=== PATIENT | female | born 1950 | race African-American/Black ===

== ENCOUNTER 2020-07-24 10:35 | Outpatient (REF) | payer MEDICARE, SELFPAY ==
[2020-07-24 11:30] LABS: MANUAL DIFF FLAG NO
[2020-07-24 11:49] LABS: Basophils Percent Auto 0.4 % (0-2); Eosinophils Absolute Auto 0.1 X10*3/uL (0.0-0.4); Eosinophils Percent Auto 0.9 % (0-4); Hematocrit 40.3 % (37-47); Hemoglobin 13.5 g/dl (12.0-16.0); Imm Gran Abs Auto 0.01 X10*3/uL (0.00-0.03); Imm Gran Pct Auto 0.2 % (0.0-0.4); Lymphocytes Percent Auto 35.5 % (20-40); Mean Corpuscular HGB Conc 33.5 g/dl (31.0-35.0); Mean Corpuscular Hemoglobin 30.3 pg (27.0-33.0); Mean Corpuscular Volume 90.6 fL (80-98); Mean Platelet Volume 10.3 fL (9.4-12.3); Monocytes Absolute Auto 0.5 X10*3/uL (0.1-1.2); Monocytes Percent Auto 9.8 % (2-11); Neutrophils Absolute Auto 2.9 X10*3/uL (2.0-8.3); Neutrophils Percent Auto 53.2 % (45-73); Platelet Count 242 X10*3/uL (160-400); Red Blood Count 4.45 X10*6/uL (4.20-5.50); Red Cell Distribution Width 12.8 % (11.0-16.0); White Blood Count 5.5 X10*3/uL (4.8-10.8)
[2020-07-24 12:26] LABS: Thyroid Stimulating Hormone 1.16 uIU/mL (0.32-4.0)
[2020-07-24 12:34] LABS: Alanine Aminotransferase 16 U/L (0-31); Albumin Level 4.5 g/dL (3.5-5.0); Alkaline Phosphatase 60 U/L (39-117); Anion Gap 13 (12-20); Aspartate Amino Transferase 15 U/L (5-31); Bilirubin Total 0.8 mg/dL (0.0-1.0); Blood Urea Nitrogen 16 mg/dL (9-16); Calcium 9.7 mg/dL (8.4-10.2); Carbon Dioxide 28 mmol/L (22-29); Chloride 103 mmol/L (96-108); Cholesterol 271 mg/dL; Estimated Glomerular Filt Rate > 60; Glucose Fasting 89 mg/dL (60-99); HDL Cholesterol 67 mg/dL; LDL Cholesterol Calculated 181 mg/dl; Potassium 4.2 mmol/l (3.3-5.1); Sodium 140 mmol/L (135-145); Total Protein 7.4 g/dL (6.5-8.0); Triglycerides 118 mg/dL
[2020-07-24 12:37] LABS: Estimated Average Glucose 105 mg/dL; Hemoglobin A1c % 5.3 %
== END 2020-07-24 10:36 | disposition home or self-care (01) ==
LOC: HO.LAB 10:35
PROVIDERS: PCP Internal Medicine; Visit Provider Physician Assistant
DX: I10 Essential (primary) hypertension (principal); E78.5 Hyperlipidemia, unspecified; R73.09 Other abnormal glucose
CPT/HCPCS: 36415; 80053; 80061; 83036; 84443; 85025

== ENCOUNTER 2020-12-28 08:19 | Outpatient (REF) | payer MEDICARE, SELFPAY ==
--- NOTE | ~2020-12-28 | MM_ITS ---
EXAMINATION: MM SCREENING DIGITAL BREAST TOMOSYNTHESIS, BILATERAL CLINICAL INFORMATION: Screening. Asymptomatic. The lifetime risk of breast cancer based on the Tyrer-Cuzick Model is 4%. COMPARISON: Mammography: 12/25/2019, 10/18/2018, 10/17/2017 TECHNIQUE: Digital breast tomosynthesis is performed in both the craniocaudal and mediolateral oblique views along with computer-aided detection (CAD). Synthesized 2D images are generated from the tomosynthesis. FINDINGS: There are scattered areas of fibroglandular density (ACR BI-RADS breast composition Category b). There are no significant masses, abnormal calcifications, or other abnormalities. Parenchymal pattern is similar to prior exams. There is a stable smooth nodule anterior 12:00 right breast. Biopsy clip marker again noted mid upper outer right breast. The axilla and skin contours are unremarkable. MM/MM tomosynthesis screening BI IMPRESSION: No mammographic evidence of malignancy. ASSESSMENT: BI-RADS 2: Benign RECOMMENDATION: Routine annual mammography screening. This patient's information was entered into a reminder system with a target due date for their next mammogram.
== END 2020-12-28 08:20 | disposition home or self-care (01) ==
LOC: HO.MAMMO 08:19
PROVIDERS: PCP Internal Medicine; Visit Provider Internal Medicine
DX: Z12.31 Encounter for screening mammogram for malignant neoplasm of breast (principal)
CPT/HCPCS: 77063; 77067

== ENCOUNTER 2021-01-25 09:52 | Outpatient (REF) | payer MEDICARE, SELFPAY ==
[2021-01-25 11:13] LABS: Hematocrit 38.7 % (37-47); Hemoglobin 12.7 g/dl (12.0-16.0); Mean Corpuscular HGB Conc 32.8 g/dl (31.0-35.0); Mean Corpuscular Hemoglobin 29.7 pg (27.0-33.0); Mean Corpuscular Volume 90.4 fL (80-98); Mean Platelet Volume 10.5 fL (9.4-12.3); Platelet Count 260 X10*3/uL (160-400); Red Blood Count 4.28 X10*6/uL (4.20-5.50); Red Cell Distribution Width 13.3 % (11.0-16.0); White Blood Count 5.5 X10*3/uL (4.8-10.8)
[2021-01-25 11:17] LABS: Alanine Aminotransferase 17 U/L (0-31); Albumin Level 4.3 g/dL (3.5-5.0); Alkaline Phosphatase 67 U/L (39-117); Anion Gap 11 (12-20); Aspartate Amino Transferase 17 U/L (5-31); Bilirubin Total 0.8 mg/dL (0.0-1.0); Blood Urea Nitrogen 19 mg/dL (9-16); Calcium 9.9 mg/dL (8.4-10.2); Carbon Dioxide 30 mmol/L (22-29); Chloride 103 mmol/L (96-108); Cholesterol 269 mg/dL; Estimated Glomerular Filt Rate 52; Glucose Fasting 101 mg/dL (60-99); HDL Cholesterol 61 mg/dL; LDL Cholesterol Calculated 193 mg/dl; Potassium 4.2 mmol/L (3.3-5.1); Sodium 140 mmol/L (135-145); Total Protein 7.4 g/dL (6.5-8.0); Triglycerides 76 mg/dL
[2021-01-25 11:40] LABS: Estimated Average Glucose 108 mg/dL; Hemoglobin A1c % 5.4 %
[2021-01-25 12:10] LABS: Creatinine Urine 139.24 mg/dL
== END 2021-01-25 09:53 | disposition home or self-care (01) ==
LOC: HO.LAB 09:52
PROVIDERS: PCP Internal Medicine; Visit Provider Physician Assistant
DX: R73.09 Other abnormal glucose (principal); I10 Essential (primary) hypertension; E78.2 Mixed hyperlipidemia
CPT/HCPCS: 36415; 80053; 80061; 82043; 83036; 84443; 85027

== ENCOUNTER → 2021-03-29 08:29 | Outpatient (BNVA) | payer MEDICARE, SELFPAY | PROVIDERS: PCP Internal Medicine; Referring Provider Internal Medicine; Visit Provider Surgery | DX: L72.0 Epidermal cyst (principal) | CPT/HCPCS: 99202 ==

== ENCOUNTER 2021-04-05 | Outpatient (REF) | payer MEDICARE, SELFPAY ==
[2021-04-05 07:41] VITALS: BP 166/76; PULSE 63; RESP 16; TEMP 36.2; O2SAT 98
[2021-04-05 07:43] VITALS: BMI 26.7
[2021-04-05 08:10] VITALS: BP 159/82; PULSE 61; RESP 16; O2SAT 98
--- NOTE | 2021-04-05 08:24 | P.OP_ITS ---
Operative Note Operative Note Date of Service: 04/05/21 Narrative: Preop Diagnosis: Epidermal cyst, left wrist Postop diagnosis: As above Procedure: Excision of epidermal cyst from the left wrist Surgeon: Rudy Simental MD Patient is a 70-year-old female with note of a cystic induration on the wrist at the volar aspect, measuring about 1 cm in diameter. She understood the technique of excision under local anesthesia. She was aware of the risks, benefits, and alternatives She was about to the minor procedure room and placed supine on the table. The left wrist at the anterior aspect was prepped and draped in the usual sterile fashion. A surgical time-out was done. I infiltrated the area around the cystic induration. This was done using lidocaine 1%. I then made an elliptical incision around this cystic induration using blade 15. This was carried down through the full-thickness of the skin and subcutaneous fat to excise this entire indurated area. I then closed this incision with full-thickness nylon 3- 0 interrupted sutures. Dressings were applied. The procedure was completed The patient tolerated procedure well. There were no complications noted. She was given wound care instructions. Blood loss about 1 cc.
== END 2021-04-05 00:01 | disposition home or self-care (01) ==
LOC: HO.MS
PROVIDERS: PCP Internal Medicine; Visit Provider Surgery
PROC: (CPT 11421; principal; 2021-04-05 08:00)
DX: L72.0 Epidermal cyst (principal); L90.5 Scar conditions and fibrosis of skin
CPT/HCPCS: 11421; 88305

== ENCOUNTER → 2021-04-21 09:37 | Outpatient (BNVA) | payer MEDICARE, SELFPAY | PROVIDERS: PCP Internal Medicine; Visit Provider Surgery | DX: L72.0 Epidermal cyst (principal) | CPT/HCPCS: 99212 ==

== ENCOUNTER 2021-05-14 10:12 | Outpatient (REF) | payer MEDICARE, SELFPAY ==
[2021-05-14 10:50] LABS: Hematocrit 39.2 % (37.0-47.0); Mean Corpuscular HGB Conc 33.2 g/dl (31.0-35.0); Mean Corpuscular Hemoglobin 29.7 pg (27.0-33.0); Mean Corpuscular Volume 89.5 fL (80.0-98.0); Mean Platelet Volume 10.2 fL (9.4-12.3); Platelet Count 238 X10*3/uL (160-400); Red Blood Count 4.38 X10*6/uL (4.20-5.50); Red Cell Distribution Width 13.1 % (11.0-16.0); White Blood Count 6.6 X10*3/uL (4.8-10.8)
[2021-05-14 11:13] LABS: Alanine Aminotransferase 18 U/L (0-31); Albumin Level 4.4 g/dL (3.5-5.0); Alkaline Phosphatase 63 U/L (39-117); Anion Gap 10 (12-20); Aspartate Amino Transferase 16 U/L (5-31); Bilirubin Direct 0.3 mg/dL (0.0-0.5); Bilirubin Total 0.9 mg/dL (0.0-1.0); Blood Urea Nitrogen 18 mg/dL (9-16); Calcium 9.4 mg/dL (8.4-10.2); Carbon Dioxide 30 mmol/L (22-29); Chloride 105 mmol/L (96-108); Cholesterol 178 mg/dL; Estimated Glomerular Filt Rate > 60; Glucose Random 103 mg/dL (60-115); HDL Cholesterol 57 mg/dL; LDL Cholesterol Calculated 109 mg/dl; Sodium 141 mmol/L (135-145); Total Protein 7.2 g/dL (6.5-8.0); Triglycerides 63 mg/dL
[2021-05-14 11:34] LABS: Thyroid Stimulating Hormone 0.91 uIU/mL (0.32-4.0)
== END 2021-05-14 10:13 | disposition home or self-care (01) ==
LOC: HO.LAB 10:12
PROVIDERS: PCP Internal Medicine; Visit Provider Internal Medicine
DX: I10 Essential (primary) hypertension (principal); E78.2 Mixed hyperlipidemia
CPT/HCPCS: 36415; 80048; 80061; 80076; 84443; 85027

== ENCOUNTER 2021-12-22 11:07 | Outpatient (REF) | payer MEDICARE, SELFPAY ==
[2021-12-22 12:18] LABS: Hematocrit 40.3 % (37.0-47.0); Hemoglobin 13.3 g/dl (12.0-16.0); Mean Corpuscular Hemoglobin 29.6 pg (27.0-33.0); Mean Corpuscular Volume 89.8 fL (80.0-98.0); Mean Platelet Volume 10.3 fL (9.4-12.3); Platelet Count 223 X10*3/uL (160-400); Red Blood Count 4.49 X10*6/uL (4.20-5.50); Red Cell Distribution Width 12.8 % (11.0-16.0); White Blood Count 5.8 X10*3/uL (4.8-10.8)
[2021-12-22 12:30] LABS: Appearance Urine CLEAR; Color Urine YELLOW; Glucose Urine UA NEG (NEG); Leukocyte Esterase Urine NEG (NEG); Nitrite Urine NEG (NEG); Specific Gravity - Urine <= 1.005 (1.005-1.025); Urine Blood 1+ (NEG); Urine Ketones NEG (NEG); Urine Protein NEG (NEG-TRACE)
[2021-12-22 12:31] LABS: Estimated Average Glucose 120 mg/dL; Hemoglobin A1c % 5.8 %
[2021-12-22 12:40] LABS: Alanine Aminotransferase 19 U/L (0-31); Albumin Level 4.3 g/dL (3.5-5.0); Alkaline Phosphatase 60 U/L (39-117); Anion Gap 10 (12-20); Aspartate Amino Transferase 16 U/L (5-31); Bilirubin Direct 0.3 mg/dL (0.0-0.5); Bilirubin Total 0.7 mg/dL (0.0-1.0); Blood Urea Nitrogen 20 mg/dL (9-16); Calcium 9.4 mg/dL (8.4-10.2); Carbon Dioxide 28 mmol/L (22-29); Chloride 105 mmol/L (96-108); Cholesterol 182 mg/dL; Estimated Glomerular Filt Rate 58; Glucose Random 95 mg/dL (60-115); HDL Cholesterol 58 mg/dL; LDL Cholesterol Calculated 111 mg/dl; Sodium 139 mmol/L (135-145); Total Protein 7.2 g/dL (6.5-8.0); Triglycerides 65 mg/dL
[2021-12-22 12:43] LABS: Bacteria Urine TRACE /LPF; RBC Urine 0-2 /HPF (0); Squamous Epithelial Cell Urine 1+ /LPF; WBC Urine 0 /HPF (0-4)
[2021-12-22 12:54] LABS: Creatinine Urine 32.56 mg/dL; Microalbumin Urine < 5.0 mg/L
== END 2021-12-22 11:08 | disposition home or self-care (01) ==
LOC: HO.LAB 11:07
PROVIDERS: PCP Internal Medicine; Visit Provider Internal Medicine
DX: I10 Essential (primary) hypertension (principal); R73.09 Other abnormal glucose
CPT/HCPCS: 36415; 80048; 80061; 80076; 81001; 82043; 83036; 85027

== ENCOUNTER 2021-12-30 09:24 | Outpatient (REF) | payer MEDICARE, SELFPAY ==
--- NOTE | ~2021-12-30 | MM_ITS ---
EXAMINATION: MM SCREENING DIGITAL BREAST TOMOSYNTHESIS, BILATERAL CLINICAL INFORMATION: Screening. Asymptomatic. The lifetime risk of breast cancer based on the Tyrer-Cuzick Model is 2.9%. COMPARISON: Mammography: December 28, 2020 and studies dating back to September 12, 2013 TECHNIQUE: Digital breast tomosynthesis is performed in both the craniocaudal and mediolateral oblique views along with computer-aided detection (CAD). Synthesized 2D images are generated from the tomosynthesis. FINDINGS: There are scattered areas of fibroglandular density (ACR BI-RADS breast composition Category b). There are no significant masses, abnormal calcifications, or other abnormalities. MM/MM tomosynthesis screening BI IMPRESSION: There are no significant changes from prior study. ASSESSMENT: BI-RADS 1: Negative RECOMMENDATION: Routine annual mammography screening. This patient's information was entered into a reminder system with a target due date for their next mammogram.
== END 2021-12-30 09:25 | disposition home or self-care (01) ==
LOC: HO.MAMMO 09:24
PROVIDERS: PCP Internal Medicine; Visit Provider Internal Medicine
DX: Z12.31 Encounter for screening mammogram for malignant neoplasm of breast (principal)
CPT/HCPCS: 77063; 77067

== ENCOUNTER 2022-07-19 09:10 | Outpatient (REF) | payer MEDICARE, SELFPAY ==
[2022-07-19 09:51] LABS: Hematocrit 37.6 % (37.0-47.0); Hemoglobin 12.6 g/dl (12.0-16.0); Mean Corpuscular HGB Conc 33.5 g/dl (31.0-35.0); Mean Corpuscular Hemoglobin 30.1 pg (27.0-33.0); Mean Platelet Volume 10.4 fL (9.4-12.3); Platelet Count 229 X10*3/uL (160-400); Red Blood Count 4.18 X10*6/uL (4.20-5.50); Red Cell Distribution Width 13.2 % (11.0-16.0); White Blood Count 6.4 X10*3/uL (4.8-10.8)
[2022-07-19 10:40] LABS: Appearance Urine Clear; Color Urine Yellow; Glucose Urine UA Negative (Negative); Leukocyte Esterase Urine Negative (Negative); Nitrite Urine Negative (Negative); UMIC TRIGGER UA YES; Urine Blood Small (1+) (Negative); Urine Ketones Negative (Negative); Urine Protein Negative (Neg-Trace)
[2022-07-19 10:58] LABS: WBC Urine 0-5 /HPF (0-5)
[2022-07-19 11:00] LABS: Hyaline Casts Urine 0-2 /LPF (0-2)
[2022-07-19 11:14] LABS: Bacteria Urine 1+ (None Seen)
[2022-07-19 11:38] LABS: Alanine Aminotransferase 17 U/L (0-31); Albumin Level 4.2 g/dL (3.5-5.0); Alkaline Phosphatase 55 U/L (39-117); Anion Gap 11 (12-20); Aspartate Amino Transferase 16 U/L (5-31); Bilirubin Direct 0.2 mg/dL (0.0-0.5); Bilirubin Total 0.6 mg/dL (0.0-1.0); Blood Urea Nitrogen 18 mg/dL (9-16); Calcium 9.4 mg/dL (8.4-10.2); Carbon Dioxide 27 mmol/L (22-29); Chloride 106 mmol/L (96-108); Cholesterol 172 mg/dL; Estimated Glomerular Filt Rate > 60; Glucose Random 107 mg/dL (60-115); HDL Cholesterol 55 mg/dL; LDL Cholesterol Calculated 102 mg/dl; Sodium 140 mmol/L (135-145); Thyroid Stimulating Hormone 0.89 uIU/mL (0.32-4.0); Triglycerides 78 mg/dL
== END 2022-07-19 09:11 | disposition home or self-care (01) ==
LOC: HO.LAB 09:10
PROVIDERS: PCP Internal Medicine; Visit Provider Internal Medicine
DX: I10 Essential (primary) hypertension (principal)
CPT/HCPCS: 36415; 80048; 80061; 80076; 81001; 84443; 85027

== ENCOUNTER 2023-01-03 08:35 | Outpatient (REF) | payer MEDICARE, SELFPAY ==
--- NOTE | ~2023-01-03 | MM_ITS ---
EXAMINATION: MM SCREENING DIGITAL BREAST TOMOSYNTHESIS, BILATERAL CLINICAL INFORMATION: Screening. Asymptomatic. The lifetime risk of breast cancer based on the Tyrer-Cuzick Model is 3%. COMPARISON: Mammography: 12/30/2021, 12/28/2020, 12/25/2019 TECHNIQUE: Digital breast tomosynthesis is performed in both the craniocaudal and mediolateral oblique views along with computer-aided detection (CAD). Synthesized 2D images are generated from the tomosynthesis. FINDINGS: There are scattered areas of fibroglandular density (ACR BI-RADS breast composition Category b). Breast tissue composition borders on predominantly fatty. Background stromal and fibroglandular densities are stable. There is a biopsy clip marker again seen mid upper outer right breast and a small stable nodular asymmetry central right breast. No developing density. There are no significant masses, abnormal calcifications, or other abnormalities. The axilla and skin contours are unremarkable. MM/MM tomosynthesis screening BI IMPRESSION: No mammographic evidence of malignancy. ASSESSMENT: BI-RADS 2: Benign RECOMMENDATION: Routine annual mammography screening. This patient's information was entered into a reminder system with a target due date for their next mammogram.
== END 2023-01-03 08:36 | disposition home or self-care (01) ==
LOC: HO.MAMMO 08:35
PROVIDERS: PCP Internal Medicine; Visit Provider Nurse Practitioner Adult Health
DX: Z12.31 Encounter for screening mammogram for malignant neoplasm of breast (principal)
CPT/HCPCS: 77063; 77067

== ENCOUNTER 2023-01-12 09:53 | Outpatient (REF) | payer MEDICARE, SELFPAY | END 2023-01-12 09:54 | disposition home or self-care (01) | LOC: HO.LAB 09:53 | PROVIDERS: PCP Internal Medicine; Visit Provider Internal Medicine | DX: I10 Essential (primary) hypertension (principal); R73.09 Other abnormal glucose | CPT/HCPCS: 81003 ==

== ENCOUNTER 2023-01-19 08:18 | Outpatient (AMB) | payer MEDICARE, SELFPAY ==
--- NOTE | 2023-01-19 08:25 | A.OFFPC_ITS ---
Vital Signs 01/19/23 08:26 Height 5 ft 3 in Weight 159 lb BMI 28.2 BP 132/80 Blood Pressure Location Lt brachial Position Sitting Pulse 70 Pulse Source Pulse Oximeter Pulse Oximetry (%) 100 Oxygen Delivery Method Room Air Intake Visit Reasons: 6mth f/u Intake Note: Patient here for a 6 month follow up Surgical Aide Required: No Accompanied by: Spouse Allergies No Known Allergies [No Known Allergies*] Allergy (Verified 01/19/23 08:39) Medication List - Last Reconciled 01/19/23 by Alexander Baldwin MD lisinopril-hydrochlorothiazide 10-12.5 mg 1 tab PO DAILY 90 days metformin 500 mg PO DAILY 90 days rosuvastatin 10 mg PO DAILY Tobacco use date assessed: 07/21/22 Fall risk assessment: No Falls in past year Last assessed Fall Risk: 01/19/23 Dental Screening Dental Screen Date: 01/19/23 Did you have a dental visit in the last 12 months?: Yes Did you have a dental problem in the last 6 months where you did not have access to dental care?: No Was dental information given to patient?: Patient has dentist HPI 6mth f/u HPI Details 72-year-old female presents to the office to discuss her chronic medical conditions. Patient is compliant with all medications and reporting no side effects. Able to function and do all activities of daily living. She exercises 1 to 2 times a week and follows a reasonably healthy diet. Sleeping well at night. Reporting no urinary incontinence. [facility], LAT[facility] Medical History Epidermal cyst Hyperlipidemia Hypertension Impaired glucose metabolism Normal colonoscopy Surgical History History of partial hysterectomy History of right breast biopsy Hx of cataract surgery Family History Father MVA (motor vehicle accident) Mother Cancer Sister Diabetes Hypertension Sister No problems noted. Social History Housing: House Alcohol intake: never Patient Tobacco Use Status: Never used Tobacco e-Cigarette/Vaping Use: Never Used Second Hand Smoke Exposure: No service: No Current occupational status: employed Current occupational exposures/hazards: No Cognitive needs: No Hearing needs: No Vision needs: Yes Questionnaire Thrive Questionnaire Date Thrive assessed: 07/21/22 MICHAEL-7 AMB Questionnaire MICHAEL-7 Date MICHAEL - 7 assessed: 07/21/22 Source: Developed by Drs. Akshat Aguilar, Venecia Solomon, Simeon Saleh and colleagues, with an educational veronica from [employer]. Physical exam (Primary Care) Vital Signs: Last Vital Signs Pulse 70 01/19/23 08:26 BP 132/80 01/19/23 08:26 Pulse Ox 100 01/19/23 08:26 Oxygen Delivery Method Room Air 01/19/23 08:26 Care Plan Goal for BP management: Blood pressure is in range. BMI result Body Mass Index 28.2 Tobacco/Smoking Status: Tobacco use Status Tobacco use date assessed 07/21/22 01/19/23 08:31 Patient Tobacco Use Status Never used Tobacco 01/19/23 08:31 e-Cigarette/Vaping Use Never Used 01/19/23 08:31 Thrive Assessment: Date of Thrive Assessment Date Thrive assessed 07/21/22 01/19/23 08:31 Advance Care Planning discussion: On file, no changes Const General: cooperative, healthy appearing and comfortable HENMT Head: Yes normal to inspection and Yes atraumatic Eyes General: appearance normal, both eyes and all related structures Neck Neck: Yes normal visual inspection and Yes full ROM Chest Chest palpation & inspection: normal inspection of the chest Resp Effort & Inspection: normal respiratory effort Auscultation: clear to auscultation bilaterally Cardio Jugular venous distension: no JVD Palpation: normal PMI Rate: regular rate Heart sounds: S1 normal heart sound present and S2 normal heart sound present GI Palpation (GI): Soft to palpation and No hepatosplenomegaly present Extrem General: Yes normal to inspection and Yes full ROM Assessment and Plan Assessment & Plan (1) Age-related osteoporosis without current pathological fracture: Code(s): M81.0 - Age-related osteoporosis without current pathological fracture (2) Impaired glucose metabolism: Code(s): R73.09 - Other abnormal glucose Plan: Blood work has been ordered. Will call with results. (3) Hypertension: Code(s): I10 - Essential (primary) hypertension Qualifiers: Hypertension type: essential hypertension Qualified Code(s): I10 - Essential (primary) hypertension Plan: Blood pressure is in range. Continue medications at same dosage. Counseling on the importance of diet and exercise done. (4) Hyperlipidemia: Code(s): E78.5 - Hyperlipidemia, unspecified Qualifiers: Hyperlipidemia type: mixed hyperlipidemia Qualified Code(s): E78.2 - Mixed hyperlipidemia Plan: Blood work has been ordered. Will call with the results. Orders: Orders XR DEXA appendicular skeleton Today M81.0 - Age-related osteoporosis without current pathological fracture Basic Metabolic Panel Today E78.5 - Hyperlipidemia, unspecified, I10 - Essential (primary) hypertension, R73.09 - Other abnormal glucose Hemoglobin A1c Today E78.5 - Hyperlipidemia, unspecified, I10 - Essential (prim sebastian) hypertension, R73.09 - Other abnormal glucose Lipid Panel Today E78.5 - Hyperlipidemia, unspecified, I10 - Essential (primary) hypertension, R73.09 - Other abnormal glucose Liver Panel Today E78.5 - Hyperlipidemia, unspecified, I10 - Essential (primary) hypertension, R73.09 - Other abnormal glucose Thyroid Stimulating Hormone Today E78.5 - Hyperlipidemia, unspecified, I10 - Essential (primary) hypertension, R73.09 - Other abnormal glucose Coding Level of Care Code Est Pt Level 4 (62577) Diagnoses Age-related osteoporosis without current pathological fracture M81.0 Impaired glucose metabolism R73.09 Hypertension I10 Hypertension type: essential hypertension Hyperlipidemia E78.2 Hyperlipidemia type: mixed hyperlipidemia Additional Codes Vital Signs *Quality* - Advance Care Planning discussion: On file, no changes ([id number])
[2023-01-19 08:26] VITALS: BP 132/80; PULSE 70; O2SAT 100; BMI 28.2
== END 2023-01-19 08:38 | disposition home or self-care (01) ==
PROVIDERS: PCP Internal Medicine; Visit Provider Internal Medicine
DX: M81.0 Age-related osteoporosis without current pathological fracture (principal); R73.09 Other abnormal glucose; I10 Essential (primary) hypertension; E78.2 Mixed hyperlipidemia; Z71.89 Other specified counseling
CPT/HCPCS: 1123F; 99214

== ENCOUNTER 2023-01-19 08:48 | Outpatient (REF) | payer MEDICARE, SELFPAY ==
[2023-01-19 09:55] LABS: Estimated Average Glucose 117 mg/dL; Hemoglobin A1c % 5.7 %
[2023-01-19 10:46] LABS: Alanine Aminotransferase 20 U/L (0-31); Albumin Level 4.3 g/dL (3.5-5.0); Alkaline Phosphatase 60 U/L (39-117); Anion Gap 11 (12-20); Aspartate Amino Transferase 15 U/L (5-31); Bilirubin Direct 0.2 mg/dL (0.0-0.5); Blood Urea Nitrogen 19 mg/dL (9-16); Calcium 9.5 mg/dL (8.4-10.2); Carbon Dioxide 29 mmol/L (22-29); Chloride 103 mmol/L (96-108); Cholesterol 184 mg/dL; Estimated Glomerular Filt Rate 59; Glucose Random 121 mg/dL (60-115); HDL Cholesterol 55 mg/dL; LDL Cholesterol Calculated 109 mg/dl; Potassium 3.8 mmol/L (3.3-5.1); Sodium 139 mmol/L (135-145); Total Protein 7.3 g/dL (6.5-8.0); Triglycerides 102 mg/dL
== END 2023-01-19 08:49 | disposition home or self-care (01) ==
LOC: HO.LAB 08:48
PROVIDERS: PCP Internal Medicine; Visit Provider Internal Medicine
DX: R73.09 Other abnormal glucose (principal); I10 Essential (primary) hypertension; E78.5 Hyperlipidemia, unspecified; M81.0 Age-related osteoporosis without current pathological fracture
CPT/HCPCS: 36415; 80048; 80061; 80076; 83036; 84443

== ENCOUNTER 2023-02-14 08:07 | Outpatient (REF) | payer MEDICARE, SELFPAY ==
--- NOTE | ~2023-02-14 | MM_ITS ---
EXAMINATION: BONE DENSITOMETRY CLINICAL INDICATION: Age-related osteoporosis without current pathological fracture. COMPARISON: This is the patient's baseline examination. TECHNIQUE: Using a [employer] DXA System (software version: 13.1) manufactured by [employer], dual-energy x-ray absorptiometry was performed of the lumbar spine and left hip. The images are of good technical quality. Summary results are attached. FINDINGS: AP SPINE L1-L4: BMD 1.813 g/cm2, Z-score 6.1, T-score 5.3, normal. LEFT FEMUR, NECK: BMD 1.429 g/cm2, Z-score 3.6, T-score 2.8, normal. LEFT FEMUR, TOTAL: BMD 1.435 g/cm2, Z-score 3.9, T-score 3.4, normal. IDENTIFIED RISK FACTORS: Hysterectomy, menopause. HISTORY OF FRACTURE: None listed. MEDICATIONS: Calcium supplements or multivitamin, vitamin D. MM/XR DEXA axial skeleton IMPRESSION: 1. DIAGNOSIS: Normal bone density based on the lowest T-score value of 2.8 in the femoral neck applying World Health Organization criteria. 2. 10-YEAR FRACTURE RISK PREDICTION, FRAX: According to the guidelines, FRAX calculation should only be performed on patients in the osteopenia bone density category. Therefore, FRAX was not performed on this patient. 3. Treatment Recommendations: NOF guidelines recommend consideration for treatment in postmenopausal women and men age 50 and older presenting with the following: -A hip or vertebral (clinical or morphometric) fracture. -T-score less than or equal to -2.5 at the femoral neck or spine after appropriate evaluation to exclude secondary causes. -Low bone mass at the hip or spine and a 10-year fracture probability by FRAX of greater than or equal to 3% for hip fracture or greater than or equal to 20% for major osteoporotic fracture based on the [place] adapted WHO algorithm. 4. Other Recommendations: All treatment decisions require clinical judgment and consideration of individual patient factors, including patient preferences, comorbidities, previous drug use, risk factors not captured in the FRAX model (e.g. frailty, falls, vitamin D deficiency, increased bone turnover, interval significant decline in bone density) and possible under or overestimation of fracture risk by FRAX. FUTURE SCAN RECOMMENDATION: People with diagnosed cases of osteoporosis or at high risk for fracture should have regular bone mineral density tests. For patients eligible for Medicare, routine testing is allowed once every 2 years. The testing frequency can be increased to one year for patients who have rapidly progressing disease, those who are receiving or discontinuing medical therapy to restore bone mass, or have additional risk factors.
== END 2023-02-14 08:08 | disposition home or self-care (01) ==
LOC: HO.MAMMO 08:07
PROVIDERS: Visit Provider Internal Medicine
DX: M81.0 Age-related osteoporosis without current pathological fracture (principal)
CPT/HCPCS: 77080

== ENCOUNTER → 2023-02-14 08:15 | Outpatient (BNV) | payer MEDICARE, SELFPAY | PROVIDERS: Visit Provider Radiology Diagnostic Radiology | DX: M81.0 Age-related osteoporosis without current pathological fracture (principal) | CPT/HCPCS: 77080 ==

== ENCOUNTER 2023-07-24 09:57 | Outpatient (REF) | payer MEDICARE, SELFPAY ==
[2023-07-24 11:23] LABS: Hematocrit 40.9 % (37.0-47.0); Hemoglobin 13.5 g/dl (12.0-16.0); Mean Corpuscular Hemoglobin 29.4 pg (27.0-33.0); Mean Corpuscular Volume 89.1 fL (80.0-98.0); Mean Platelet Volume 10.3 fL (9.4-12.3); Platelet Count 276 X10*3/uL (160-400); Red Blood Count 4.59 X10*6/uL (4.20-5.50); Red Cell Distribution Width 12.9 % (11.0-16.0); White Blood Count 5.4 X10*3/uL (4.8-10.8)
[2023-07-24 11:27] LABS: Estimated Average Glucose 120 mg/dL; Hemoglobin A1c % 5.8 % (<6.0)
[2023-07-24 11:59] LABS: Alanine Aminotransferase 24 U/L (0-31); Albumin Level 4.3 g/dL (3.5-5.0); Alkaline Phosphatase 61 U/L (39-117); Anion Gap 12 (12-20); Aspartate Amino Transferase 19 U/L (5-31); Bilirubin Total 0.9 mg/dL (0.0-1.0); Blood Urea Nitrogen 14 mg/dL (9-16); Calcium 9.7 mg/dL (8.4-10.2); Carbon Dioxide 30 mmol/L (22-29); Chloride 103 mmol/L (96-108); Cholesterol 179 mg/dL (<200); Estimated Glomerular Filt Rate > 60; Glucose Random 103 mg/dL (60-115); HDL Cholesterol 50 mg/dL (>40); LDL Cholesterol Calculated 110 mg/dL (<100); Potassium 4.2 mmol/L (3.3-5.1); Sodium 141 mmol/L (135-145); Total Protein 7.7 g/dL (6.5-8.0); Triglycerides 95 mg/dL (<150)
[2023-07-24 12:07] LABS: TSH reflex Free T4 0.81 uIU/mL (0.32-4.0); Vitamin D 25-OH Total 77.2 ng/mL (>30)
[2023-07-24 12:19] LABS: Vitamin B12 1509 pg/mL (200-900)
== END 2023-07-24 09:58 | disposition home or self-care (01) ==
LOC: HO.LAB 09:57
PROVIDERS: PCP Internal Medicine; Visit Provider Internal Medicine
DX: Z00.00 Encounter for general adult medical examination without abnormal findings (principal); R73.09 Other abnormal glucose; E78.2 Mixed hyperlipidemia
CPT/HCPCS: 36415; 80053; 80061; 82306; 82607; 82746; 83036; 84443; 85027

== ENCOUNTER 2023-07-27 11:19 | Outpatient (AMB) | payer MEDICARE, SELFPAY ==
--- NOTE | 2023-07-27 11:25 | MHC.PC.OV ---
Vital Signs 07/27/23 11:27 Height 5 ft 3 in Weight 157 lb BMI 27.8 BP 120/70 Blood Pressure Location Lt brachial Position Sitting Pulse 74 Pulse Source Pulse Oximeter Pulse Oximetry (%) 97 Oxygen Delivery Method Room Air Intake Visit Reasons: 6mth f/u Intake Note: Patient is here to follow up on HTN, DM, Hyperlipidemia, and lab results. Request for a referral for a trigger finger in right hand. 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 Accompanied by: Spouse Allergies No Known Allergies [No Known Allergies*] Allergy (Verified 08/06/23 10:01) Medication List - Last Reconciled 08/06/23 by Alexander Baldwin MD lisinopril-hydrochlorothiazide 10-12.5 mg 1 tab PO DAILY 90 days metformin 500 mg PO DAILY 90 days rosuvastatin 10 mg PO DAILY Tobacco use date assessed: 07/27/23 Fall risk assessment: No Falls in past year Last assessed Fall Risk: 07/27/23 Dental Screening Dental Screen Date: 07/27/23 Did you have a dental visit in the last 12 months?: Yes Did you have a dental problem in the last 6 months where you did not have access to dental care?: No Was dental information given to patient?: Patient has dentist HPI 6mth f/u HPI Details 73-year-old female presents to the office to discuss her chronic medical conditions. She is accompanied by her . Patient is at baseline state of health. She reports that the ring finger in her left hand gets stuck in the flexed position. Occasionally it is painful. She feels a nodule in the palm of her hand. Reports no morning stiffness. Compliant with all medications. [facility] Medical History Epidermal cyst Normal colonoscopy Hyperlipidemia Hypertension Impaired glucose metabolism Surgical History Hx of cataract surgery History of right breast biopsy History of partial hysterectomy Family History Father MVA (motor vehicle accident) Mother Cancer Sister Diabetes Hypertension Sister No problems noted. Social History Housing: House Alcohol intake: never Patient Tobacco Use Status: Never used Tobacco e-Cigarette/Vaping Use: Never Used Second Hand Smoke Exposure: No service: No Current occupational status: employed Current occupational exposures/hazards: No Cognitive needs: No Hearing needs: No Vision needs: Yes Questionnaire PHQ-9 Over the last 2 weeks, how often have you been bothered by any of the following problems? 1. Little interest or pleasure in doing things: not at all 2. Feeling down, depressed, or hopeless: not at all 3. Trouble falling or staying asleep, or sleeping too much: not at all 4. Feeling tired or having little energy: not at all 5. Poor appetite or overeating: not at all 7. Trouble concentrating on things, such as reading the newspaper or watching television: not at all 8. Moving or speaking so slowly that other people could have noticed. Or the opposite - being so fidgety or restless that you have been moving around a lot more than usual: not at all 9. Thoughts that you would be better off or of hurting yourself in some way: not at all Depression Screening Interpretation: Negative Depression Screening Done: Yes Source: Developed by Drs. Akshat Aguilar, Venecia Solomon, Simeon Saleh and colleagues, with an educational veronica from [employer]. Thrive Questionnaire Date Thrive assessed: 07/27/23 I am a: Patient What is your living situation today?: I have a steady place to live Within the past 12 months, did the food you bought not last and you didn't have the money to get more?: Never true Within the past 12 months, did you worry whether your food would run out before you got money to buy more?: Never true Do you have trouble paying for medicines?: No Do you have trouble getting transportation to medical appointments?: No Do you have trouble paying your heating and electricity bill?: No Do you have trouble taking care of your child, family member or friend?: No Do you have trouble with day-to-day activities such as bathing, preparing meals, shopping, managing finances, etc.?: No Are you currently unemployed and looking for a job?: No Are you interested in more education?: No Currently or been in a relationship where the following occur: no concerns reported THRIVE Score: 0 AUDIT C Alcohol Use Questionnaire (AUDIT-C) 1. How often do you have a drink containing alcohol?: Never 2. How many drinks containing alcohol do you have on a typical day when you are drinking?: 1 or 2 Total Score: 0 MICHAEL-7 AMB Questionnaire MICHAEL-7 Date MICHAEL - 7 assessed: 07/27/23 Feeling nervous, anxious, or on edge: 0 = Not at all Not being able to stop or control worryin = Not at all Worrying too much about different things: 0 = Not at all Trouble relaxin = Not at all Being so restless that it is hard to sit still: 0 = Not at all Becoming easily annoyed or irritable: 0 = Not at all Feeling afraid as if something awful might happen: 0 = Not at all Total MICHAEL-7 score (0-4 normal; 5-9 mild; 10-14 moderate; 15-21 severe): 0 Source: Developed by Drs. Akshat Aguilar, Venecia Solomon, Simeon Saleh and colleagues, with an educational veronica from [employer]. Physical exam (Primary Care) Vital Signs: Last Vital Signs Pulse 74 07/27/23 11:27 BP 120/70 07/27/23 11:27 Pulse Ox 97 07/27/23 11:27 Oxygen Delivery Method Room Air 07/27/23 11:27 BMI result Body Mass Index 27.8 Tobacco/Smoking Status: Tobacco use Status Tobacco use date assessed 07/27/23 07/27/23 11:34 Patient Tobacco Use Status Never used Tobacco 07/27/23 11:34 e-Cigarette/Vaping Use Never Used 07/27/23 11:34 Depression Screening Interpretation: Negative Thrive Assessment: Date of Thrive Assessment Date Thrive assessed 07/27/23 07/27/23 11:34 Currently or been in a relationship where the following occur: no concerns reported Const General: cooperative and healthy appearing Nutritional Appearance: well nourished Orientation/consciousness: patient oriented x3 Limitations: no limitations HENMT Head: Yes normal to inspection Eyes General: appearance normal, both eyes and all related structures Neck Neck: Yes normal visual inspection Chest Chest palpation & inspection: normal palpation of entire chest wall Resp Effort & Inspection: normal respiratory effort Neuro General: patient oriented x3 Extrem Other: Left hand: Small nodule palpable along the tendon sheath. When asking the patient to make a fist and open the 3rd finger remains in the flexed position. Assessment and Plan Assessment & Plan (1) Trigger finger: Code(s): M65.30 - Trigger finger, unspecified finger Plan: An orthopedic referral has been made. Stretching exercises suggested. (2) Hyperlipidemia: Code(s): E78.5 - Hyperlipidemia, unspecified Qualifiers: Hyperlipidemia type: mixed hyperlipidemia Qualified Code(s): E78.2 - Mixed hyperlipidemia Plan: This note is dictated after the blood work results are available. Blood work is in range. Continue medications at same dosage. (3) Hypertension: Code(s): I10 - Essential (primary) hypertension Qualifiers: Hypertension type: essential hypertension Qualified Code(s): I10 - Essential (primary) hypertension Plan: Blood work is in range. Continue blood pressure medications at same dosage. Coding Level of Care Code Est Pt Level 4 (90718) Diagnoses Trigger finger M65.30 Mixed hyperlipidemia E78.2 Hyperlipidemia type: mixed hyperlipidemia Essential hypertension I10 Hypertension type: essential hypertension
[2023-07-27 11:27] VITALS: BP 120/70; PULSE 74; O2SAT 97; BMI 27.8
== END 2023-07-27 12:02 | disposition home or self-care (01) ==
PROVIDERS: PCP Internal Medicine; Visit Provider Internal Medicine
DX: M65.30 Trigger finger, unspecified finger (principal); E78.2 Mixed hyperlipidemia; I10 Essential (primary) hypertension
CPT/HCPCS: 99214

== ENCOUNTER 2023-09-04 14:01 | Outpatient (AMB) | payer MEDICARE, SELFPAY ==
--- NOTE | 2023-09-04 14:07 | MHC.OFFVIS ---
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 Patient reports her finger started to locking in place since April. She states that when she has her hand in a fist for a long time she notices her finger getting locked. No hx of treatment. Allergies No Known Allergies [No Known Allergies*] Allergy (Verified 09/04/23 14:12) HPI nonprofit financial controller- Trigger finger, RT Hand ring finger HPI Details 73-year-old right hand dominant female who presents in the office today, as a new patient, for an evaluation of right ring finger trigger finger. The patient was seen by her PCP on 07/27/2023 where she reported her right ring finger gets stuck in a flexed position. While in the office today the patient reports her finger started to lock in place in 04/2023. She also reports when her hand is in a fist for a long period of time her right ring finger locks. She has not history of treatment. [facility] Medical History Epidermal cyst Normal colonoscopy Hyperlipidemia Hypertension Impaired glucose metabolism Surgical History Hx of cataract surgery History of right breast biopsy History of partial hysterectomy Family History Father MVA (motor vehicle accident) Mother Cancer Sister Diabetes Hypertension Sister No problems noted. Social History Housing: House Alcohol intake: never Patient Tobacco Use Status: Never used Tobacco e-Cigarette/Vaping Use: Never Used Second Hand Smoke Exposure: No service: No Current occupational status: employed Current occupational exposures/hazards: No Cognitive needs: No Hearing needs: No Vision needs: Yes Review of Systems Const All systems reviewed & are unremarkable except as noted in HPI and below Physical Exam Vital Signs: BMI result Body Mass Index 27.8 Const General: cooperative and no acute distress Orientation/consciousness: patient oriented x3 Resp Effort & Inspection: normal respiratory effort and able to speak in complete sentences Cardio Peripheral pulses: Peripheral pulses 2+ throughout Skin General skin exam: no rashes or lesions noted Neuro General: patient oriented x3 Extrem Other: Right ring finger: Normal to inspection. No ecchymosis, erythema, or edema. Able to perform full finger flexion, extension, abduction, adduction, finger cross, okay sign, and thumbs up without deficit. Able to make a closed fist. Mild triggering of the right ring finger. Mild tenderness to palpation over the A1 lily. Sensation int Office Procedures Joint Inj/Aspir; Non-Pain Clin Joint Injection/Drain Prep: site was prepped using aseptic technique and injection warnings given Approach Used: other (A1 lily ) Procedure: The patient tolerated the procedure well, but had some pain with the injection and there was some relief with the local anesthesia Trigger Finger Trigger Finger Ring Joint Injection: Right Ring Coding Details: 1cc decadron, 1 cc 2% lido Procedure code (CPT) selection complete Assessment & Plan Assessment & Plan (1) Trigger finger, right ring finger: Code(s): M65.341 - Trigger finger, right ring finger Plan Ms. Jeffrey is a 73-year-old right hand dominant female who presents in the office today, as a new patient, for an evaluation of right ring finger trigger finger. The patient was seen by her PCP on 07/27/2023 where she reported her right ring finger gets stuck in a flexed position. While in the office today the patient reports her finger started to lock in place in 04/2023. She also reports when her hand is in a fist for a long period of time her right ring finger locks. She has not history of treatment. The patient was offered a trigger finger injection in the right ring finger. The patient was explained the risk, benefits, and alternatives to receiving this injection. After receiving consent for the injection, the patient had the procedure done while in office today. The patient tolerated the procedure well with no complications. Follow up will be PRN, or sooner if needed. Patient Instructions: Scribed by Cristin Chen medical superintendent, for Cortney Mazariegos PA-C on 09/04/2023 at 2:04 pm, EST. Coding Level of Care Code New Pt Level 4 (15741) Diagnoses Trigger finger, right ring finger M65.341 CPT Codes Trigger Finger ([id number])
[2023-09-04 14:14] VITALS: BMI 27.8
== END 2023-09-04 14:43 | disposition home or self-care (01) ==
PROVIDERS: PCP Internal Medicine; Visit Provider Physician Assistant
DX: M65.341 Trigger finger, right ring finger (principal)
CPT/HCPCS: 20550; 99204; 99214

== ENCOUNTER → 2023-09-04 14:01 | Outpatient (BNVA) | payer MEDICARE, SELFPAY | PROVIDERS: PCP Internal Medicine; Visit Provider Physician Assistant | DX: M65.341 Trigger finger, right ring finger (principal) | CPT/HCPCS: 20550; 99202; J1100 ==

== ENCOUNTER 2024-01-05 08:23 | Outpatient (REF) | payer MEDICARE, SELFPAY | END 2024-01-05 08:24 | disposition home or self-care (01) | LOC: HO.MAMMO 08:23 | PROVIDERS: PCP Internal Medicine; Visit Provider Internal Medicine | DX: Z12.31 Encounter for screening mammogram for malignant neoplasm of breast (principal) | CPT/HCPCS: 77063; 77067 ==

== ENCOUNTER → 2024-01-05 08:30 | Outpatient (BNV) | payer MEDICARE, SELFPAY | PROVIDERS: PCP Internal Medicine; Visit Provider Radiology Diagnostic Radiology | DX: Z12.31 Encounter for screening mammogram for malignant neoplasm of breast (principal) | CPT/HCPCS: 77063; 77067 ==

== ENCOUNTER 2024-01-26 09:14 | Outpatient (REF) | payer MEDICARE, SELFPAY ==
[2024-01-26 10:33] LABS: Appearance Urine Clear; Color Urine Yellow; Glucose Urine UA Negative (Negative); Leukocyte Esterase Urine Trace (Negative); Nitrite Urine Negative (Negative); PH 6.5 (5.0-9.0); Specific Gravity - Urine 1.015 (1.005-1.025); UMIC TRIGGER UA YES; Urine Blood Negative (Negative); Urine Ketones Negative (Negative); Urine Protein Negative (Neg-Trace)
[2024-01-26 10:33] LABS: Hematocrit 40.5 % (37.0-47.0); Hemoglobin 13.7 g/dl (12.0-16.0); Mean Corpuscular HGB Conc 33.8 g/dl (31.0-35.0); Mean Corpuscular Hemoglobin 30.1 pg (27.0-33.0); Mean Platelet Volume 10.5 fL (9.4-12.3); Platelet Count 255 X10*3/uL (160-400); Red Blood Count 4.55 X10*6/uL (4.20-5.50); Red Cell Distribution Width 13.2 % (11.0-16.0); White Blood Count 6.5 X10*3/uL (4.8-10.8)
[2024-01-26 10:44] LABS: Bacteria Urine None Seen (None Seen); Hyaline Casts Urine 0-2 /LPF (0-2); RBC Urine 0-2 /HPF (0-2); Squamous Epithelial Cell Urine 0-2 /HPF (0-2); WBC Urine 0-5 /HPF (0-5)
[2024-01-26 14:56] LABS: Estimated Average Glucose 117 mg/dL; Hemoglobin A1C 140.0575 umol/L; Hemoglobin A1c % 5.7 % (<6.0)
[2024-01-26 16:30] LABS: Creatinine Urine 83.13 mg/dL
[2024-01-26 16:31] LABS: Microalbumin Urine < 5.0 mg/L
[2024-01-26 20:40] LABS: Alanine Aminotransferase 17 U/L (0-31); Albumin Level 4.4 g/dL (3.5-5.0); Alkaline Phosphatase 64 U/L (39-117); Anion Gap 15 (12-20); Aspartate Amino Transferase 16 U/L (5-31); Bilirubin Direct 0.2 mg/dL (0.0-0.5); Bilirubin Total 0.8 mg/dL (0.0-1.0); Blood Urea Nitrogen 16 mg/dL (9-16); Calcium 10.1 mg/dL (8.4-10.2); Carbon Dioxide 27 mmol/L (22-29); Chloride 103 mmol/L (96-108); Cholesterol 169 mg/dL (<200); Estimated Glomerular Filt Rate 60; Glucose Random 83 mg/dL (60-115); HDL Cholesterol 56 mg/dL (>40); LDL Cholesterol Calculated 90 mg/dL (<100); Potassium 4.1 mmol/L (3.3-5.1); Sodium 141 mmol/L (135-145); Total Protein 7.6 g/dL (6.5-8.0); Triglycerides 117 mg/dL (<150)
== END 2024-01-26 09:15 | disposition home or self-care (01) ==
LOC: HO.LAB 09:14
PROVIDERS: PCP Internal Medicine; Visit Provider Internal Medicine
DX: I10 Essential (primary) hypertension (principal); E78.2 Mixed hyperlipidemia
CPT/HCPCS: 36415; 80048; 80061; 80076; 81001; 82043; 82570; 83036; 85027

== ENCOUNTER 2024-01-31 07:51 | Outpatient (AMB) | payer MEDICARE, SELFPAY ==
[2024-01-31 08:03] VITALS: BP 162/98; PULSE 78; O2SAT 98; BMI 27.8
--- NOTE | 2024-01-31 08:03 | A.OFFPC_ITS ---
Vital Signs 01/31/24 08:03 Height 5 ft 3 in Weight 157 lb BMI 27.8 BP 162/98 H Blood Pressure Location Lt brachial Position Sitting Pulse 78 Pulse Source Pulse Oximeter Pulse Oximetry (%) 98 Oxygen Delivery Method Room Air Intake Visit Reasons: Annual Physical - see comments Allergies No Known Allergies [No Known Allergies*] Allergy (Verified 01/31/24 08:23) Medication List - Last Reconciled 01/31/24 by Alexander Baldwin MD lisinopril-hydrochlorothiazide 10-12.5 mg 1 tab PO DAILY 90 days metformin 500 mg PO DAILY 90 days rosuvastatin 10 mg PO DAILY Tobacco use date assessed: 07/27/23 Fall risk assessment: No Falls in past year Last assessed Fall Risk: 01/31/24 Dental Screening Dental Screen Date: 01/31/24 Did you have a dental visit in the last 12 months?: Yes Did you have a dental problem in the last 6 months where you did not have access to dental care?: No Was dental information given to patient?: Patient has dentist HPI Annual Physical - see comments HPI Details 73-year-old female presents to the offic e requesting an annual physical. [facility] Medical History Epidermal cyst Normal colonoscopy Hyperlipidemia Hypertension Impaired glucose metabolism Surgical History Hx of cataract surgery History of right breast biopsy History of partial hysterectomy Family History Father MVA (motor vehicle accident) Mother Cancer Sister Diabetes Hypertension Sister No problems noted. Social History Housing: House Alcohol intake: never Patient Tobacco Use Status: Never used Tobacco e-Cigarette/Vaping Use: Never Used Second Hand Smoke Exposure: No service: No Current occupational status: employed Current occupational exposures/hazards: No Cognitive needs: No Hearing needs: No Vision needs: Yes Questionnaire PHQ-9 Over the last 2 weeks, how often have you been bothered by any of the following problems? 1. Little interest or pleasure in doing things: not at all 2. Feeling down, depressed, or hopeless: not at all 3. Trouble falling or staying asleep, or sleeping too much: not at all 4. Feeling tired or having little energy: not at all 5. Poor appetite or overeating: not at all 7. Trouble concentrating on things, such as reading the newspaper or watching television: not at all 8. Moving or speaking so slowly that other people could have noticed. Or the opposite - being so fidgety or restless that you have been moving around a lot more than usual: not at all 9. Thoughts that you would be better off or of hurting yourself in some way: not at all Depression Screening Interpretation: Negative Depression Screening Done: Yes Source: Developed by Drs. Akshat Aguilar, Venecia Solomon, Simeon Saleh and colleagues, with an educational veronica from [employer]. Thrive Questionnaire Date Thrive assessed: 07/27/23 AUDIT C Alcohol Use Questionnaire (AUDIT-C) 1. How often do you have a drink containing alcohol?: Never 2. How many drinks containing alcohol do you have on a typical day when you are drinking?: 1 or 2 Total Score: 0 MICHAEL-7 AMB Questionnaire MICHAEL-7 Date MICHAEL - 7 assessed: 07/27/23 Source: Developed by Drs. Akshat Aguilar, Venecia Solomon, Simeon Saleh and colleagues, with an educational veronica from [employer]. Physical exam (Primary Care) Vital Signs: Last Vital Signs Pulse 78 01/31/24 08:03 BP 162/98 H 01/31/24 08:03 Pulse Ox 98 01/31/24 08:03 Oxygen Delivery Method Room Air 01/31/24 08:03 Care Plan Goal for BP management: Blood pressure is slightly elevated. Continue medications at same dosage. BMI result Body Mass Index 27.8 Tobacco/Smoking Status: Tobacco use Status Tobacco use date assessed 07/27/23 01/31/24 08:08 Patient Tobacco Use Status Never used Tobacco 01/31/24 08:08 e-Cigarette/Vaping Use Never Used 01/31/24 08:08 Depression Screening Interpretation: Negative Thrive Assessment: Date of Thrive Assessment Date Thrive assessed 07/27/23 01/31/24 08:08 Advance Care Planning discussion: Exists, not on file Date of discussion: 01/31/24 Forms completed: Health Care Proxy and MOLST Const General: cooperative and healthy appearing Nutritional Appearance: well nourished Orientation/consciousness: patient oriented x3 Limitations: no limitations HENMT Head: Yes normal to inspection Eyes General: appearance normal, both eyes and all related structures Neck Neck: Yes normal visual inspection Chest Chest palpation & inspection: normal palpation of entire chest wall Resp Effort & Inspection: normal respiratory effort Neuro General: patient oriented x3 Assessment and Plan Assessment & Plan (1) Hypertension: Code(s): I10 - Essential (primary) hypertension Qualifiers: Hypertension type: essential hypertension Qualified Code(s): I10 - Essential (primary) hypertension Plan: Blood pressure is in range. Continue current medications. Blood work reviewed. Slightly elevated blood pressure noted. Advised her to keep a log at home. (2) Hyperlipidemia: Code(s): E78.5 - Hyperlipidemia, unspecified Qualifiers: Hyperlipidemia type: mixed hyperlipidemia Qualified Code(s): E78.2 - Mixed hyperlipidemia Plan: LDL in range. Continue current medications. Blood work reviewed. (3) Annual physical exam: Code(s): Z00.00 - Encounter for general adult medical examination without abnormal findings Plan: Patient is up-to-date on her annual mammogram, immunizations and colonoscopy. Orders: Orders Lipid Panel 07/02/24 E78.2 - Mixed hyperlipidemia, I10 - Essential (primary) hypertension Thyroid Stimulating Hormone 07/02/24 E78.2 - Mixed hyperlipidemia, I10 - Essential (primary) hypertension Basic Metabolic Panel 07/02/24 E78.2 - Mixed hyperlipidemia, I10 - Essential (primary) hypertension Liver Panel 07/02/24 E78.2 - Mixed hyperlipidemia, I10 - Essential (primary) hypertension UA and rflx microscopic 07/02/24 E78.2 - Mixed hyperlipidemia, I10 - Essential (primary) hypertension Medications: Refilled metformin 500 mg PO DAILY 90 tabs 2RF 90 days R73.09 - Other abnormal glucose lisinopril-hydrochlorothiazide 10-12.5 mg 1 tab PO DAILY 90 tabs 2RF 90 days R73.09 - Other abnormal glucose rosuvastatin 10 mg PO DAILY 90 tabs 2RF Coding Level of Care Code Est Pt Prev Care >65y(26067) Diagnoses Essential hypertension I10 Hypertension type: essential hypertension Mixed hyperlipidemia E78.2 Hyperlipidemia type: mixed hyperlipidemia Annual physical exam Z00.00 Additional Codes Vital Signs *Quality* - Advance Care Planning discussion: Exists, not on file ([id number])
== END 2024-01-31 08:22 | disposition home or self-care (01) ==
PROVIDERS: Visit Provider Internal Medicine
DX: I10 Essential (primary) hypertension (principal); E78.2 Mixed hyperlipidemia; Z00.00 Encounter for general adult medical examination without abnormal findings
CPT/HCPCS: 1123F; 99397

== ENCOUNTER 2024-04-23 07:45 | Day surgery (SDC) | payer MEDICARE, SELFPAY ==
[2024-04-18 14:45] VITALS: BMI 28.6
--- NOTE | 2024-04-19 10:08 | HO.ANESPROP2 ---
Documented by User: Rabia Julien NP 04/19/24 10:08 HPI - Anesthesia Eval Consult details Narrative: 73yo F for ?Colonoscopy PMFSH Active Problems Active Problems: All Active Problems Trigger finger, right ring finger (Acute) Epidermal cyst (Acute) Impaired glucose metabolism (Acute) Hypertension (Acute) Hyperlipidemia (Acute) Past Medical History Medical History White coat syndrome with hypertension Glaucoma Epidermal cyst Normal colonoscopy Hyperlipidemia Hypertension Impaired glucose metabolism Family History Family History Father MVA (motor vehicle accident) Mother Cancer Sister Diabetes Hypertension Sister No problems noted. Surgical History Surgical History History of esophagogastroduodenoscopy (EGD) Hx of hand surgery H/O colonoscopy Hx of excision of mass History of right breast biopsy History of partial hysterectomy Social History Social History Housing: House Alcohol intake: never Patient Tobacco Use Status: Never used Tobacco e-Cigarette/Vaping Use: Never Used Second Hand Smoke Exposure: No service: No Current occupational status: employed Current occupational exposures/hazards: No Cognitive needs: No Hearing needs: No Vision needs: Yes Meds Allergies Allergy/AdvReac Type Severity Reaction Status Date / Time No Known Allergies Allergy Verified 01/31/24 08:23 [No Known Allergies*] Home Medications ?Medication ?Instructions ?Recorded ?Confirmed ?Last Taken ?Type dorzolamide 22.3 mg-timolol 6.8 1 drp ophthalmic (eye) BID 04/18/24 04/18/24 04/23/24 History mg/mL eye drops (Cosopt) latanoprost 0.005 % eye drops 1 drp ophthalmic (eye) BEDTIME 04/18/24 04/18/24 Unknown History Exam Height,Weight and Vital Signs: Height 5 ft 2.5 in Weight 72.121 kg Assessment and Plan Assessment Anesthesia Assessment: Chart Reviewed Documented by User: Malaika Brown MD 04/23/24 09:49 [facility] Past Medical History Medical History White coat syndrome with hypertension Glaucoma Epidermal cyst Normal colonoscopy Hyperlipidemia Hypertension Impaired glucose metabolism Family History Family History Father MVA (motor vehicle accident) Mother Cancer Sister Diabetes Hypertension Sister No problems noted. Family history of problems with anesthesia: No Surgical History Surgical History History of esophagogastroduodenoscopy (EGD) Hx of hand surgery H/O colonoscopy Hx of excision of mass History of right breast biopsy History of partial hysterectomy History of Problems with Anesthesia: No Social History Social History Housing: House Alcohol intake: never Patient Tobacco Use Status: Never used Tobacco e-Cigarette/Vaping Use: Never Used Second Hand Smoke Exposure: No service: No Current occupational status: employed Current occupational exposures/hazards: No Cognitive needs: No Hearing needs: No Vision needs: Yes Meds Allergies Allergy/AdvReac Type Severity Reaction Status Date / Time No Known Allergies Allergy Verified 01/31/24 08:23 [No Known Allergies*] Home Medications ?Medication ?Instructions ?Recorded ?Confirmed ?Last Taken ?Type dorzolamide 22.3 mg-timolol 6.8 1 drp ophthalmic (eye) BID 04/18/24 04/18/24 04/23/24 History mg/mL eye drops (Cosopt) latanoprost 0.005 % eye drops 1 drp ophthalmic (eye) BEDTIME 04/18/24 04/18/24 Unknown History Exam Height,Weight and Vital Signs: Height 5 ft 2.5 in Weight 72.121 kg Vital Signs Temp Pulse Resp BP Pulse Ox O2 Del Method 04/23/24 08:56 99.3 F 64 16 163/88 H 100 Room Air Pertinent Lab Results Pertinent Lab Results: Lab Results 04/23/24 Range/Units 09:20 POC Glucose 106 (60-115) mg/dL Airway Mallampati Class: II Neck ROM: Full Loose/Missing/Broken Teeth: Yes (Missing molars and 1 tooth top and bottom back left. Bonded teeth back right. Denies broken or loose teeth) Heart: RRR Lungs: CTAB Assessment and Plan Assessment Anesthesia Assessment: Anesthesia Plan Discussed and Chart Reviewed Final Anesthetic Review Family History of Problems with Anesthesia: No History of Problems with Anesthesia: No NPO: Yes ASA Class: III Final Preanesthetic Review: No Changes in Pt Med Stat, Meds/Allgs Chart Reviewed, Consent Obtained/Reviewed and Anes Risks/Benef Reviewed Patient Risk: Intermediate Procedure Risk: Low Assessment/Block/Sedation in SS: Assess/Block/Sedation-SS Anesthetic Plan Anesthetic Plan: TIVA Disposition: Standard PACU
[2024-04-23 08:49] VITALS: BMI 27.5
[2024-04-23 08:56] VITALS: BP 163/88; PULSE 64; RESP 16; TEMP 37.4; O2SAT 100
[2024-04-23 09:25] LABS: Glucose, Whole Blood 106 mg/dL (60-115)
[2024-04-23] MEDS: Lactated Ringers 1,000 ML 100 ML IVCONT (09:30)
--- NOTE | 2024-04-23 10:00 | P.HPSUR_ITS ---
Pre-Procedural Eval Section A - 24 Hr Update-Section A only Date of Service: 04/23/24 The patient is an INPATIENT: No Changes since office visit: No Cold of Flu in the past 2 weeks, No New Medical Problems, No Changes in Medication and No Patient answered all questions The patient has been examined within 24 hours of the surgical procedure. The History & Physical has been completed within 30 days and I have reviewed it.: Yes Section B - Complete if H&P > 30 days Chief Complaint: screening Details of Present Illness: see H&P no changes Relevant Family History (Specify if Yes): No Relevant Social History: None Present Medications: see Short Stay Collaborative assessment Medical History: No relevant PMH History of Previous Operations: No relevant previous surgery Allergies: Allergies Allergy/AdvReac Type Severity Reaction Status Date / Time No Known Allergies Allergy Verified 01/31/24 08:23 [No Known Allergies*] Review of Systems Sugical H&P ROS: Negative: Constitution, Cardiovascular, Respiratory, Neurological, Psychiatric, Hem-Onc, Allergic/Immunologic, Gastrointestinal, Genitourinary, Musculoskeletal, Integumentary, Endocrine and Eyes/Ea rs/Nose/Throat Exam Surgical H&P Exam: Normal: HEENT, Normal: Heart, Normal: Lungs, Normal: Extremities, Normal: Abdomen, Normal: Skin and Normal: Neurological Plan Diagnosis/Plan: Unchanged I have reviewed the history and physical and performed a pertinent physical examination on my patient. No changes have occurred unless specified. Time Spent With Patient Time: Total time managing care of this patient today ____ minutes.
[2024-04-23 10:45] VITALS: BP 140/69; PULSE 77; RESP 23; TEMP 36.6; O2SAT 98
--- NOTE | 2024-04-23 10:54 | OP_ITS ---
DATE OF SERVICE: 04/23/2024 SURGEON: Joshua Mckeon MD INDICATIONS: Colon cancer screening. PREOPERATIVE DIAGNOSIS: POSTOPERATIVE DIAGNOSIS: PROCEDURE PERFORMED: Colonoscopy to the terminal ileum with snare polypectomy. ESTIMATED BLOOD LOSS: COMPLICATIONS: ANESTHESIA: Monitored anesthesia care. ASSISTANTS: SPECIMENS: DESCRIPTION OF PROCEDURE: A history and physical was performed. The risks and benefits of the procedure were explained to the patient and informed consent was obtained. The patient was placed in the left lateral decubitus position. A digital rectal exam was performed and was found to be normal. The Olympus pediatric video colonoscope was introduced into the rectum and advanced to the cecum. The cecum was identified by transillumination, palpation, and identification of ileocecal valve. Examination was performed and the scope was removed. She tolerated the procedure well and was returned to recovery area in stable condition. FINDINGS: The terminal ileum was examined and appeared normal. The visualized colonic mucosa was normal. The quality of the prep was good. Two polyps were identified and removed with a cold snare, both measured less than 10 mm. These were located in the cecum and at 50 cm. No other polyps were identified. There was mild sigmoid diverticulosis. The quality of the prep was good. Retroflexed examination showed some small internal hemorrhoids. IMPRESSION: Colon polyps. RECOMMENDATION: Follow up the biopsy results. MD SANDRA Carlson/ARTURO / [phone]
[2024-04-23 11:00] VITALS: BP 145/85; PULSE 62; RESP 23; TEMP 36.6; O2SAT 96
== END 2024-04-23 11:27 | disposition home or self-care (01) ==
PROVIDERS: PCP Internal Medicine; Visit Provider Internal Medicine Gastroenterology
PROC: 0DJD8ZZ Inspection of Lower Intestinal Tract, Via Natural or Artificial Opening Endoscopic (ICD-10-PCS; CPT 45378; principal; 2024-04-23 09:50)
DX: Z12.11 Encounter for screening for malignant neoplasm of colon (principal); D12.5 Benign neoplasm of sigmoid colon; K63.5 Polyp of colon; K64.8 Other hemorrhoids; K21.9 Gastro-esophageal reflux disease without esophagitis; I10 Essential (primary) hypertension; E78.5 Hyperlipidemia, unspecified; R73.02 Impaired glucose tolerance (oral); Z79.84 Long term (current) use of oral hypoglycemic drugs; Z79.899 Other long term (current) drug therapy; Z98.890 Other specified postprocedural states
CPT/HCPCS: 45385; 82947; 88305; J2003; J2704

== ENCOUNTER 2024-08-16 08:57 | Outpatient (REF) | payer MEDICARE, SELFPAY ==
--- OUTSIDE RECORDS SUMMARY | 2024-08-16 09:16 | XMS_ITS | Patient Health Record ---
Author Organization [facility] Address [address] [place] [address] Care Team Providers Care Culturist Name Role Phone AMBROCIO WELCH Primary Care Provider Joshua Renteria Jr [phone] ALLERGIES No Known Allergies RESULTS Component Value Reference Range Notes Glucose, Whole Blood Reviewed date:04/23/2024 02:37:04 PM Interpretation: Performing Lab:[facility], [address] [place] [id number] Notes/Report: Glucose, Whole Blood 106 60-115 mg/dL METER # : [id number] Pathology Reviewed date:05/01/2024 08:19:53 AM Interpretation: Performing Lab:[facility], [address] [place] [phone] Notes/Report: REASON FOR REFERRAL No Information MEDICATIONS Medication SIG (Take, Route, Frequency, Duration) Notes Start Date End Date Status Lisinopril-hydroCHLOROthiaz seymour 10-12.5 MG Oral for 100 Active metFORMIN HCl 500 MG Oral for 100 Active Latanoprost 0.005 % Ophthalmic for 100 Active Dorzolamide HCl-Timolol Mal 2-0.5 % Ophthalmic for 100 Active Rosuvastatin Calcium 10 MG Oral for 100 Active MiraLax (colon prep) 8.3 ounce ((238) grams mixed with Gatorade or Crystal Light orally begin at 5:00 p.m. the day before the procedure for 1 day 03/13/2024 Active IMMUNIZATIONS Vaccine Route Administration Date Status Comme nts Influenza Unknown 03/13/2024 Refused SOCIAL HISTORY Sex Assigned At : Social History Observation Description Sex Assigned At Unknown PROBLEMS Problem Type ICD Code Onset Dates Problem Status W/U Status Risk SNOMED Code Notes Problem Special screening for malignant neoplasms, colon (Z12.11) Active confirmed 223202467 Problem Gastroesophageal reflux disease without esophagitis (K21.9) Active confirmed [id number] Problem long-term (current) use of oral hypoglycemic drugs (Z79.84) Active confirmed [id number] VITAL SIGNS Temperature 97.1 degrees Fahrenheit 03/13/2024 Blood pressure diastolic 00 mm Hg 03/13/2024 Height 62.5 in 03/13/2024 Blood pressure systolic 000 mm Hg 03/13/2024 Weight 159 lb 2 oz lbs 03/13/2024 BMI 28.64 kg/m2 03/13/2024 Encounters Encounter Location Date Provider Diagnosis [facility] [address] [place] [id number] 04/23/2024 Joshua Mckeon Jr Colon cancer screening Z12.11 and Colon polyps K63.5 [facility] [address] [place] [phone] 03/13/2024 Joshua Mckeon Jr Special screening for malignant neoplasms, colon Z12.11 ; Gastroesophageal reflux disease without esophagitis K21.9 and long-term (current) use of oral hypoglycemic drugs Z79.84 [facility] [address] [place] [phone] 05/01/2024 Joshua Mckeon Jr ASSESSMENTS Encounter Date Diagnosis Assessment Notes Treatment Notes Treatment Clinical Notes 04/23/2024 Colon cancer screeni ng (ICD-10 - Z12.11) 04/23/2024 Colon polyps (ICD-10 - K63.5) 03/13/2024 Special screening fo r malignant neoplasms, colon (ICD-10 - Z12.11) 03/13/2024 Gastroesophageal ref lux disease without esophagitis (ICD-10 - K21.9) 03/13/2024 terminal supervisor (current) use of oral hypoglycemic drugs (ICD-10 - Z79.84) PLAN OF TREATMENT Future Test Test Name Order Date COLONOSCOPY 03/13/2024 Insurance Providers Payer Name Payer Address Payer Phone Subscriber Number Group Number Insured Name Patient Relationship to Insured Coverage Start Date Coverage End Date [employer] Medicare Adv (PPO) [address] [address] [place] [address] [id number] ELOINA JOVEL Self - patient is the insured MEDICAL (GENERAL) HISTORY Medical History History ICD Code Hypertension Hyperlipidemia Impaired glucose patellas him Esophageal stricture with hi story of food impaction status post EGD with balloon dilation 05/24, reflux symptoms controlled with diet Colonoscopy 12/21, normal, ten-year follo wup Surgical History Surgery Date(Month/Year) partial hysterectomy breast biopsy-right trigger finger cyst on left wrist
--- OUTSIDE RECORDS SUMMARY | 2024-08-16 09:16 | XMS_ITS ---
Author Organization [facility] Address [address] [place] [address] Care Team Providers Care Hospitalist Program Director Name Role Phone AMBROCIO WELCH Primary Care Provider Joshua Renteria Jr REASON FOR VISIT screening Encounters Encounter Location Date Provider Diagnosis [facility] [place] [facility] [address] [place] [id number] 04/23/2024 Joshua Mckeon Jr Colon cancer screening Z12.11 and Colon polyps K63.5 ASSESSMENTS Encounter Date Diagnosis Assessment Notes Treatment Notes Treatment Clinical Notes 04/23/2024 Colon cancer screening (ICD-10 - Z12.11) 04/23/2024 Colon polyps (ICD-10 - K63.5) PLAN OF TREATMENT No Information
--- OUTSIDE RECORDS SUMMARY | 2024-08-16 09:16 | XMS_ITS ---
Author Organization [facility] Address [address] [place] [address] Care Team Providers Care Drying Machine Tender Name Role Phone AMBROCIO WELCH Primary Care Provider Joshua Renteria Jr Unavailable [phone] ALLERGIES No Known Allergies REASON FOR VISIT Patient presents today for a consultation MEDICATIONS Medication SIG (Take, Route, Frequency, Duration) Notes Start Date End Date Status MiraLax (colon prep) 8.3 ounce ((238) grams mixed with Gatorade or Crystal Light orally begin at 5:00 p.m. the day before the procedure for 1 day 03/13/2024 Active Lisinopril-hydroCHLOROthiaz seymour 10-12.5 MG Oral for 100 Active metFORMIN HCl 500 MG Oral for 100 Active Latanoprost 0.005 % Ophthalmic for 100 Active Dorzolamide HCl-Timolol Mal 2-0.5 % Ophthalmic for 100 Active Rosuvastatin Calcium 10 MG Oral for 100 Active IMMUNIZATIONS Vaccine Route Administration Date Status Comme nts Influenza Unknown 03/13/2024 Refused SOCIAL HISTORY Tobacco Use: Social History Observation Description Date Details (start date - stop date) Never Smoker NA - NA Sex Assigned At : Social History Observation Description Sex Assigned At Unknown Tobacco Use/Smoking Question Answer Notes Patient is a nonsmoker PROBLEMS Problem Type ICD Code Onset Dates Problem Status W/U Status Risk SNOMED Code Notes Problem Special screening for malignant neoplasms, colon (Z12.11) Active confirmed 613976145 Problem Gastroesophageal reflux disease without esophagitis (K21.9) Active confirmed 657967681 Problem 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 (Z79.84) Active confirmed [id number] VITAL SIGNS BMI 28.64 kg/m2 03/13/2024 Blood pressure systolic 000 mm Hg 03/13/20 24 Blood pressure diastolic 00 mm Hg 024 Height 62.5 in 03/13/2024 Temperature 97.1 degrees Fahrenheit 03/13/20 24 Weight 159 lb 2 oz lbs 03/13/2024 Encounters Encounter Location Date Provider Diagnosis [facility] [address] [place] [address] 03/13/2024 Joshua Mckeon Jr Special screening for malignant neoplasms, colon Z12.11 ; Gastroesophageal reflux disease without esophagitis K21.9 and 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 Z79.84 ASSESSMENTS Encounter Date Diagnosis Assessment Notes Treatment Notes Treatment Clinical Notes 03/13/2024 Special screening fo r malignant neoplasms, colon (ICD-10 - Z12.11) 03/13/2024 Gastroesophageal ref lux disease without esophagitis (ICD-10 - K21.9) 03/13/2024 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 the day before the procedure for 1 day 03/13/2024 Future Test Test Name Order Date COLONOSCOPY 03/13/2024 Next Appt Details Follow Up: prn, Reason: Progress Notes * Examination Category Sub-Category Detail Notes General Examination GENERAL APPEARANCE: in no ac [place] distress HEAD: normocephalic EYES: sclera non-icteric NECK/THYROID: no lymphadenopathy HEART: S1, S2 normal, no mu rmurs CHEST: normal shape and exp ansion LUNGS: clear to auscultatio n bilaterally ABDOMEN: soft, nontender, non distended, bowel sounds present, no organomegaly SKIN: anicteric EXTREMITIES: no clubbing, cyanosi s, or edema PSYCH: cognitive function i ntact ORAL CAVITY: mucosa moist
--- OUTSIDE RECORDS SUMMARY | 2024-08-16 09:17 | XMS_ITS ---
Author Organization [facility] Address [address] [place] [address] Care Team Providers Care Studio Director Name Role Phone AMBROCIO WELCH Primary Care Provider Joshua Renteria Jr [phone] REASON FOR VISIT pathology Encounters Encounter Location Date Provider Diagnosis [facility] [address] [place] [address] 05/01/2024 Joshua Mckeon Jr PLAN OF TREATMENT No Information
[2024-08-16 10:39] LABS: Alanine Aminotransferase 26 U/L (0-31); Albumin Level 4.4 g/dL (3.5-5.0); Alkaline Phosphatase 69 U/L (39-117); Anion Gap 11 (12-20); Aspartate Amino Transferase 22 U/L (5-31); Bilirubin Direct 0.3 mg/dL (0.0-0.5); Bilirubin Total 0.9 mg/dL (0.0-1.0); Blood Urea Nitrogen 16 mg/dL (9-16); Calcium 9.9 mg/dL (8.4-10.2); Carbon Dioxide 27 mmol/L (22-29); Chloride 104 mmol/L (96-108); Cholesterol 177 mg/dL (<200); Estimated Glomerular Filt Rate > 60; Glucose Random 105 mg/dL (60-115); HDL Cholesterol 54 mg/dL (>40); LDL Cholesterol Calculated 106 mg/dL (<100); Potassium 3.7 mmol/L (3.3-5.1); Sodium 138 mmol/L (135-145); Total Protein 7.9 g/dL (6.5-8.0); Triglycerides 89 mg/dL (<150)
[2024-08-16 11:12] LABS: Appearance Urine Clear; Color Urine Yellow; Glucose Urine UA Negative (Negative); Leukocyte Esterase Urine Small (1+) (Negative); Nitrite Urine Negative (Negative); PH 5.5 (5.0-9.0); UMIC TRIGGER UA YES; Urine Blood Negative (Negative); Urine Ketones Negative (Negative); Urine Protein Negative (Neg-Trace)
[2024-08-16 11:32] LABS: Bacteria Urine 1+ (None Seen); Hyaline Casts Urine 0-2 /LPF (0-2); RBC Urine 0-2 /HPF (0-2)
== END 2024-08-16 08:58 | disposition home or self-care (01) ==
LOC: HO.LAB 08:57
PROVIDERS: PCP Internal Medicine; Visit Provider Internal Medicine
DX: I10 Essential (primary) hypertension (principal); E78.2 Mixed hyperlipidemia
CPT/HCPCS: 36415; 80048; 80061; 80076; 81001; 81003; 84443

== ENCOUNTER 2024-08-23 08:54 | Outpatient (AMB) | payer MEDICARE, SELFPAY ==
[2024-08-23 08:55] VITALS: BP 148/92; PULSE 64; O2SAT 100; BMI 28.1
--- NOTE | 2024-08-23 08:55 | A.OFFPC_ITS ---
Vital Signs 08/23/24 08:55 Height 5 ft 3 in Weight 158 lb 6 oz BMI 28.1 BP 148/92 H Blood Pressure Location Lt brachial Position Sitting Pulse 64 Pulse Source Pulse Oximeter Pulse Oximetry (%) 100 Oxygen Delivery Method Room Air Intake Visit Reasons: 6 month follow up Allergies No Known Allergies [No Known Allergies*] Allergy (Verified 08/23/24 09:19) Medication List - Last Reconciled 08/23/24 by Shelley Pederson PA-C dorzolamide-timolol 22.3-6.8 mg/mL (Cosopt) 1 drp ophthalmic (eye) BID fluconazole 150 mg PO Q3D 2 doses latanoprost 0.005% 1 drp ophthalmic (eye) BEDTIME lisinopril-hydrochlorothiazide 10-12.5 mg 1 tab PO DAILY 90 days metformin 500 mg PO DAILY 90 days rosuvastatin 10 mg PO DAILY Tobacco use date assessed: 08/23/24 Fall risk assessment: No Falls in past year Last assessed Fall Risk: 08/23/24 Dental Screening Dental Screen Date: 08/23/24 Did you have a dental visit in the last 12 months?: Yes Did you have a dental problem in the last 6 months where you did not have access to dental care?: No Was dental information given to patient?: Patient has dentist [facility] Medical History (Updated 08/23/24 @ 11:48 by Shelley Pederson PA-C) Yeast infection Prediabetes White coat syndrome with hypertension Glaucoma Epidermal cyst Normal colonoscopy Hyperlipidemia Hypertension Impaired glucose metabolism Surgical History History of esophagogastroduodenoscopy (EGD) Hx of hand surgery H/O colonoscopy Hx of excision of mass History of right breast biopsy History of partial hysterectomy Family History Father MVA (motor vehicle accident) Mother Cancer Sister Diabetes Hypertension Sister No problems noted. Social History Housing: House Alcohol intake: never Patient Tobacco Use Status: Never used Tobacco e-Cigarette/Vaping Use: Never Used Second Hand Smoke Exposure: No service: No Current occupational status: employed Current occupational exposures/hazards: No Cognitive needs: No Hearing needs: No Vision needs: Yes Questionnaire PHQ-9 Over the last 2 weeks, how often have you been bothered by any of the following problems? 1. Little interest or pleasure in doing things: not at all 2. Feeling down, depressed, or hopeless: not at all 3. Trouble falling or staying asleep, or sleeping too much: not at all 4. Feeling tired or having little energy: not at all 5. Poor appetite or overeating: not at all 6. Feeling bad about yourself - or that you are a failure or have let yourself or your family down: not at all 7. Trouble concentrating on things, such as reading the newspaper or watching television: not at all 8. Moving or speaking so slowly that other people could have noticed. Or the opposite - being so fidgety or restless that you have been moving around a lot more than usual: not at all 9. Thoughts that you would be better off or of hurting yourself in some way: not at all Total score: 0 Depression Screening Interpretation: Negative Depression Screening Done: Yes 98411 - PHQ-9 Billing: Yes Source: Developed by Drs. Akshat Aguilar, Venecia Solomon, Simeon Saleh and colleagues, with an educational veronica from [employer] Thrive Questionnaire Date Thrive assessed: 08/23/24 I am a: Patient What is your living situation today?: I have a steady place to live Within the past 12 months, did the food you bought not last and you didn't have the money to get more?: Never true Within the past 12 months, did you worry whether your food would run out before you got money to buy more?: Never true Do you have trouble paying for medicines?: No Do you have trouble getting transportation to medical appointments?: No Do you have trouble paying your heating and electricity bill?: No Do you have trouble taking care of your child, family member or friend?: No Do you have trouble with day-to-day activities such as bathing, preparing meals, shopping, managing finances, etc.?: No Are you currently unemployed and looking for a job?: No Are you interested in more education?: No THRIVE Score: 0 AUDIT C Alcohol Use Questionnaire (AUDIT-C) 1. How often do you have a drink containing alcohol?: Never 3. How often do you have six or more drinks on one occasion?: Never Total Score: 0 Score Reviewed/Action Taken: Yes MICHAEL-7 AMB Questionnaire MICHAEL-7 Date MICHAEL - 7 assessed: 08/23/24 Feeling nervous, anxious, or on edge: 0 = Not at all Not being able to stop or control worryin = Not at all Worrying too much about different things: 0 = Not at all Trouble relaxin = Not at all Being so restless that it is hard to sit still: 0 = Not at all Becoming easily annoyed or irritable: 0 = Not at all Feeling afraid as if something awful might happen: 0 = Not at all Total MICHAEL-7 score (0-4 normal; 5-9 mild; 10-14 moderate; 15-21 severe): 0 Source: Developed by Drs. Akshat Aguilar, Venecia Solomon, Simeon Saleh and colleagues, with an educational veronica from [employer] MICHAEL-7 Assessment Billing MICHAEL-7 Assessment Tool: MICHAEL-7 Assessment 72006 Physical exam (Primary Care) Vital Signs: Last Vital Signs Pulse 64 08/23/24 08:55 BP 148/92 H 08/23/24 08:55 Pulse Ox 100 08/23/24 08:55 Oxygen Delivery Method Room Air 08/23/24 08:55 Care Plan Goal for BP management: <130/80 will reassess at home. Pt declined increasing her HTN regimen at this time. She will keep a diary and bring it to her next visit. BMI result Body Mass Index 28.1 BMI Assessment/Plan discussion: High BMI High, discussed plan: lifestyle, weight reduction, dietary and physical activity Tobacco/Smoking Status: Tobacco use Status Tobacco use date assessed 08/23/24 08/23/24 09:01 Patient Tobacco Use Status Never used Tobacco 08/23/24 09:01 e-Cigarette/Vaping Use Never Used 08/23/24 09:01 PHQ-9: PHQ-9 Score PHQ-9: Total score 0 08/23/24 09:22 Depression Screening Interpretation: Negative Thrive Assessment: Date of Thrive Assessment Date Thrive assessed 08/23/24 08/23/24 09:01 Results AMB Hemoglobin A1c AMB Hemoglobin A1c 6.0 % Last Edit by Nakita Glasgow CMA on 08/23/24 09:26 Results Reviewed Results Reviewed: Laboratory Last Values Hgb A1c (Clinic) 6.0 % (4.0-6.0) 08/23/24 09:20 Coding Level of Care Code Est Pt Level 4 (95020) Complex EM visit Add On G2211 Diagnoses Essential hypertension I10 Hypertension type: essential hypertension Mixed hyperlipidemia E78.2 Hyperlipidemia type: mixed hyperlipidemia Prediabetes R73.03 Yeast infection B37.9 Additional Codes MICHAEL-7 Assessment Billing - MICHAEL-7 Assessment Tool: MICHAEL-7 Assessment 36404 ([id number]) PHQ-9 - 99122 - PHQ-9 Billing: Yes ([id number]) Assessment & Plan Assessment & Plan (1) Hypertension: Code(s): I10 - Essential (primary) hypertension Category: Medical Qualifiers: Hypertension type: essential hypertension Qualified Code(s): I10 - Essential (primary) hypertension Plan: Blood pressure 148/92. Patient denies any cardiac related complaints. Took her blood pressure medication today. Reports that she has white coat syndrome and does not want a make any changes in her medications at this time. She will reassess her blood pressure at home and bring a diary at her next visit. Condition is chronic and stable. (2) Hyperlipidemia: Code(s): E78.5 - Hyperlipidemia, unspecified Category: Medical Qualifiers: Hyperlipidemia type: mixed hyperlipidemia Qualified Code(s): E78.2 - Mixed hyperlipidemia Plan: Go for LDL is less than 70 for prediabetic/diabetic. Patient currently on rosuvastatin 10 mg does not want to make any adjustments at this time. Will reassess at next 6 month visit. Condition is chronic will continue to monitor. (3) Prediabetes: Code(s): R73.03 - Prediabetes Category: Medical Plan: A1c level today is 6.0. Patient to continue metformin daily. Will reassess in 6 months. Condition is chronic and stable continue to monitor. (4) Yeast infection: Code(s): B37.9 - Candidiasis, unspecified Category: Medical Plan: Patient had a UA performed on 08/16/2024 revealed +1 leukocytes negative nitrates. No urine culture was reflex. Patient noted to have yeast in her urine and is complaining of some discharge. Will treat with Diflucan and have patient repeat urine in 1 week. Will continue to monitor. Plan Plan - Continue metformin for Type 2 Diabetes Mellitus, monitor closely. - Prescribe Diflucan for yeast infection: 150 mg today and repeat in three days. - Encourage dietary modifications to target LDL levels, considering lifestyle factors. - Monitor blood pressure at home for two weeks; maintain current regimen and evaluate. - Repeat urinalysis after completion of Diflucan treatment to ensure clearance of yeast infection. - Schedule lipid panel, CBC, CMP, thyroid function tests, vitamin D, , and magnesium in six months for routine evaluation. Orders: Orders AMB Hemoglobin A1c Today Z13.9 - Encounter for screening, unspecified UA CC w/rflx Micro + Cult Today R30.0 - Dysuria Complete Blood Count Auto Diff Today Z00.00 - Encounter for general adult medical examination without abnormal findings Hemoglobin A1c Today Z00.00 - Encounter for general adult medical examination without abnormal findings Lipid Panel Today Z00.00 - Encounter for general adult medical examination without abnormal findings Magnesium Today Z00.00 - Encounter for general adult medical examination without abnormal findings Vitamin B12 and Folate Today Z00.00 - Encounter for general adult medical examination without abnormal findings Vitamin B1 Today Z00.00 - Encounter for general adult medical examination without abnormal findings Creatine Kinase Total Today Z00.00 - Encounter for general adult medical examination without abnormal findings Comprehensive [place]. Panel Fast Today Z00.00 - Encounter for general adult medical examination without abnormal findings Liver Panel Today Z00.00 - Encounter for general adult medical examination without abnormal findings Vitamin D 25-OH Total Today Z00.00 - Encounter for general adult medical examination without abnormal findings TSH reflex Free T4 Today Z00.00 - Encounter for general adult medical examination without abnormal findings Microalbumin, Random (w Creat) Today E11.9 - Type 2 diabetes mellitus without complications Medications: New fluconazole 150 mg PO Q3D 2 tabs 0RF Patient Instructions: Patient Instructions - Take Diflucan as directed, one tablet today and another in three days. - Monitor your blood pressure at home daily for two weeks, note readings. - Follow a heart-healthy, low-cholesterol diet, especially in light of holiday eating. - Return for a repeat urine test one week after completing your yeast infection treatment. - continue metformin 500 mg for prediabetes/diabetes continue atorvastatin 10 mg for high cholesterol and your blood pressure medication daily - Schedule an appointment in six months for routine evaluation and lab work. - Contact the clinic if you experience any new or worsening symptoms. Scribe Plan - Not visible on output: History of Present Illness The patient is a 74-year-old female presenting with a 6 month follow-up for the management of Type 2 Diabetes Mellitus, Dyslipidemia, and Hypertension. The diabetes diagnosis was previously managed with metformin, with the most recent Hemoglobin A1c being 6.0%, indicating a slight increase and remaining in the prediabetic range. Last year's levels 05/2024 were reported at 5.8%. The patient reported she had a urine recently and when she looked on her patient portal it appeared that she had some bacteria and yeast. She reports she is not having any dysuria, urinary frequency or urgency although she does have slight discharge. She denies an odor. For dyslipidemia, the patient's LDL cholesterol was elevated at 106 mg/dL, up from 90 mg/dL earlier in the year, thought to possibly result from dietary changes over the holidays. She was advised to maintain LDL levels below 70 mg/dL due to her diabetic status. No modifications were made to her cholesterol medication at this time, as she preferred to attempt dietary management before considering medication adjustment. Regarding hypertension, the patient's home readings have not been reported, but today's office blood pressure was 150/90 mmHg, slightly higher than her last recording. The patient has a history of white coat syndrome and discussed maintaining her current antihypertensive regimen rather than increasing it. Social History - Employment: Works in the administrative side of a daycare facility. - Family: Has three grandchildren and a daughter who is a doctor. - Lifestyle: Reports attempts to manage dietary habits. - Mentioned having white coat syndrome. Review of Systems - Cardiovascular: Reports white coat syndrome affecting blood pressure readings. - Genitourinary: Denies burning upon urination, reports mild vaginal discharge. - Neurological: Denies dizziness. Physical Exam Appearance: Alert. Oriented X3. No acute distress. Head: Normal external exam. Normocephalic. Atraumatic. Eyes: Pupils are equal, round, and reactive to light. Extraocular movements intact. Conjunctiva and sclera normal. Eyelids normal. Ears: External auditory canal normal. Tympanic membranes normal. Throat: Pharynx normal. Uvula midline. Moist mucous membranes. Neck: Normal inspection. Neck supple. Full range of motion. Cardiovascular: Normal heart rate and rhythm. Heart sound normal. No murmurs noted. Pulses normal throughout. Respiratory: No respiratory distress. Painless inspiration. Breath sounds normal. No wheezes/rales/rhonchi noted. Chest nontender. No accessory muscle usage noted or decreased air movement noted. Abdomen: Soft and nontender. Bowel sounds normal in all 4 quadrants. No distention noted. No organomegaly noted. No visible injury noted. Back: No costovertebral angle tenderness. Full range of motion noted. Skin: Skin warm and dry. Normal skin color. Normal skin turgor. No rashes/lesions/lacerations noted. Extremities: No lower extremity edema. Extremities exhibit normal range of motion. Extremities nontender. Neuro: Oriented X 3. No motor deficit. No sensory deficit. Reflexes normal. Results - Labs: Hemoglobin A1c at 6.0%. LDL cholesterol at 106 mg/dL. - Urinalysis: Trace bacteria, presence of yeast, no culture performed. Plan - Continue metformin for Type 2 Diabetes Mellitus, monitor closely. - Prescribe Diflucan for yeast infection: 150 mg today and repeat in three days. - Encourage dietary modifications to target LDL levels, considering lifestyle factors. - Monitor blood pressure at home for two weeks; maintain current regimen and evaluate. - Repeat urinalysis after completion of Diflucan treatment to ensure clearance of yeast infection. - Schedule lipid panel, CBC, CMP, thyroid function tests, vitamin D, , and magnesium in six months for routine evaluation. Patient was informed and verbally consented to the use of an ambient scribe for clinic note documentation during this visit. Discussion Notes During the visit, we discussed the management of the patient's conditions in detail. For diabetes, the slight increase in A1c was acknowledged, and the patient was advised to monitor her lifestyle habits to keep glucose levels stable. The recurring yeast infections were linked to elevated glucose levels and prescribed Diflucan, with a urine recheck planned after treatment. The patient's LDL cholesterol presented a risk, and she was advised on dietary measures, with reassurance to reassess if LDL remains high at the next visit. Due to her known white coat syndrome, I recommended she measure her blood pressure at home and advised her on monitoring for further assessment. The comprehensive plan included further workup with blood work at the next appointment. Patient Instructions - Take Diflucan as directed, one tablet today and another in three days. - Monitor your blood pressure at home daily for two weeks, note readings. - Follow a heart-healthy, low-cholesterol diet, especially in light of holiday eating. - Return for a repeat urine test one week after completing your yeast infection treatment. - Schedule an appointment in six months for routine evaluation and lab work. - Contact the clinic if you experience any new or worsening symptoms.
--- OUTSIDE RECORDS SUMMARY | 2024-08-23 09:18 | XMS_ITS | Patient Health Record ---
Author Organization [facility] Address [address] [place] [address] Care Team Providers Care Producer Name Role Phone AMBROCIO WELCH Primary Care Provider Joshua Renteria Jr [phone] ALLERGIES No Known Allergies RESULTS Component Value Reference Range Notes Glucose, Whole Blood Reviewed date:04/23/2024 02:37:04 PM Interpretation: Performing Lab:[facility], [address] [place] [phone] Notes/Report: Glucose, Whole Blood 106 60-115 mg/dL METER # : [id number] Pathology Reviewed date:05/01/2024 08:19:53 AM Interpretation: Performing Lab:[facility], [address] [place] [phone] Notes/Report: REASON FOR REFERRAL No Information MEDICATIONS [...] for malignant neoplasms, colon (Z12.11) Active confirmed 713605057 Problem Gastroesophageal reflux disease without esophagitis (K21.9) Active confirmed 099674320 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) Active confirmed [id number] VITAL SIGNS Temperature 97.1 degrees Fahrenheit 03/13/2024 Blood pressure diastolic 00 mm Hg 03/13/2024 Height 62.5 in 03/13/2024 Blood pressure systolic 000 mm Hg 03/13/2024 Weight 159 lb 2 oz lbs 03/13/2024 BMI 28.64 kg/m2 03/13/2024 Encounters Encounter Location Date Provider Diagnosis [facility] [place] [address] [place] [phone] 04/23/2024 Joshua Mckeon Jr Colon cancer screening Z12.11 and Colon polyps K63.5 [facility] [address] [place] [phone] 03/13/2024 Joshua Mckeon Jr Special screening for malignant neoplasms, colon Z12.11 ; Gastroesophageal reflux disease without esophagitis K21.9 and care home (current) use of oral hypoglycemic drugs Z79.84 [facility] [address] [place] [phone] 05/01/2024 Joshua Mckeon Jr ASSESSMENTS Encounter Date Diagnosis Assessment Notes Treatment Notes Treatment Clinical Notes 04/23/2024 Colon cancer screeni ng (ICD-10 - Z12.11) 04/23/2024 Colon polyps (ICD-10 - K63.5) 03/13/2024 Special screening fo r malignant neoplasms, colon (ICD-10 - Z12.11) 03/13/2024 Gastroesophageal ref lux disease without esophagitis (ICD-10 - K21.9) 03/13/2024 care home (current) use of oral hypoglycemic drugs (ICD-10 - Z79.84) PLAN OF TREATMENT Future Test Test Name Order Date COLONOSCOPY 03/13/2024 Insurance Providers Payer Name Payer Address Payer Phone Subscriber Number Group Number Insured Name Patient Relationship to Insured Coverage Start Date Coverage End Date [employer] Medicare Adv (PPO) [address] [address] [place] [address] [id number] ELOINA JOVEL Self - patient is the [...]
--- OUTSIDE RECORDS SUMMARY | 2024-08-23 09:19 | XMS_ITS ---
Author Organization [facility] Address [address] [place] [address] Care Team Providers Care Transplant Case Manager Name Role Phone AMBROCIO WELCH Primary Care Provider Joshua Renteria Jr [phone] REASON FOR VISIT screening Encounters Encounter Location Date Provider Diagnosis [facility] Outpatient [address] [place] [id number] 04/23/2024 Joshua Mckeon Jr Colon cancer screening Z12.11 and Colon polyps K63.5 ASSESSMENTS Encounter Date Diagnosis Assessment Notes Treatment Notes Treatment Clinical Notes 04/23/2024 Colon cancer screening (ICD-10 - Z12.11) 04/23/2024 Colon polyps (ICD-10 - K63.5) PLAN OF TREATMENT No Information
--- OUTSIDE RECORDS SUMMARY | 2024-08-23 09:19 | XMS_ITS ---
Author Organization [facility] Address [address] [place] [address] Care Team Providers Care Hydraulic Lift Operator Name Role Phone AMBROCIO WELCH Primary Care Provider Joshua Renteria Jr REASON FOR VISIT pathology Encounters Encounter Location Date Provider Diagnosis [facility] [address] [place] [address] 05/01/2024 Joshua Mckeon Jr PLAN OF TREATMENT No Information
--- OUTSIDE RECORDS SUMMARY | 2024-08-23 09:19 | XMS_ITS ---
Author Organization [facility] Address [address] [place] [address] Care Team Providers Care Oliving Machine Operator Name Role Phone AMBROCIO WELCH Primary Care Provider Joshua Renteria Jr Unavailable [phone] ALLERGIES No Known Allergies REASON FOR VISIT [...] for malignant neoplasms, colon (Z12.11) Active confirmed 094927871 Problem Gastroesophageal reflux disease without esophagitis (K21.9) Active confirmed 490630560 Problem snf (current) use of oral hypoglycemic drugs (Z79.84) Active confirmed [id number] VITAL SIGNS BMI 28.64 kg/m2 03/13/2024 Blood pressure systolic 000 mm Hg 03/13/20 24 Blood pressure diastolic 00 mm Hg 024 Height 62.5 in 03/13/2024 Temperature 97.1 degrees Fahrenheit 03/13/20 24 Weight 159 lb 2 oz lbs 03/13/2024 Encounters Encounter Location Date Provider Diagnosis [facility] [address] [place] [address] 03/13/2024 Joshua Mckeon Jr Special screening for malignant neoplasms, colon Z12.11 ; Gastroesophageal reflux disease without esophagitis K21.9 and snf (current) use of oral hypoglycemic drugs Z79.84 ASSESSMENTS Encounter Date Diagnosis Assessment Notes Treatment Notes Treatment Clinical Notes 03/13/2024 Special screening fo r malignant neoplasms, colon (ICD-10 - Z12.11) 03/13/2024 Gastroesophageal ref lux disease without esophagitis (ICD-10 - K21.9) 03/13/2024 snf (current) use of oral hypoglycemic drugs (ICD-10 [...] General Examination GENERAL APPEARANCE: in no ac crystal distress HEAD: normocephalic EYES: sclera non-icteric NECK/THYROID: no lymphadenopathy HEART: S1, S2 normal, no mu rmurs CHEST: normal shape and exp ansion LUNGS: clear to auscultatio n bilaterally ABDOMEN: soft, nontender, non distended, bowel sounds present, no organomegaly SKIN: anicteric EXTREMITIES: no clubbing, cyanosi s, or edema PSYCH: cognitive function i ntact ORAL CAVITY: mucosa moist
== END 2024-08-23 09:33 | disposition home or self-care (01) ==
PROVIDERS: PCP Internal Medicine; Visit Provider Physician Assistant Medical
DX: I10 Essential (primary) hypertension (principal); E78.2 Mixed hyperlipidemia; R73.03 Prediabetes; B37.9 Candidiasis, unspecified; Z13.9 Encounter for screening, unspecified

== ENCOUNTER → 2024-08-23 08:54 | Outpatient (BNVA) | payer MEDICARE, SELFPAY | PROVIDERS: PCP Internal Medicine; Visit Provider Physician Assistant Medical | DX: I10 Essential (primary) hypertension (principal); E78.2 Mixed hyperlipidemia; R73.03 Prediabetes; B37.9 Candidiasis, unspecified | CPT/HCPCS: 83036; 96127; 99212 ==

== ENCOUNTER 2025-01-17 08:01 | Outpatient (REF) | payer MEDICARE, SELFPAY ==
--- OUTSIDE RECORDS SUMMARY | 2025-01-17 08:03 | XMS_ITS | Patient Health Record ---
Author Organization [facility] Address [address] [place] [address] Care Team Providers Care Knife Setter Grinder Machine Name Role Phone AMBROCIO WELCH Primary Care Provider Joshua Renteria Jr Allergies No Known Allergies Results Component Value Reference Range Notes Glucose, Whole Blood Reviewed date:04/23/2024 02:37:04 PM Interpretation: Performing Lab:[facility], [address] [place] [phone] Notes/Report: Glucose, Whole Blood 106 60-115 mg/dL METER # : [id number] Pathology Reviewed date:05/01/2024 08:19:53 AM Interpretation: Performing Lab:[facility], [address] [place] [phone] Notes/Report: Reason For Referral No Information Medications Medication SIG (Take, Route, Frequency, Duration) Notes [...] the procedure for 1 day 03/13/2024 Active Immunizations Vaccine Route Administration Date Status Comme nts Influenza Unknown 03/13/2024 Refused Problems Problem Type SNOMED Code ICD Code Onset Dates Problem Status W/U Status Risk Notes Problem 330870187 Special screenin g for malignant neoplasms, colon (Z12.11) Active confirmed Problem 304978267 Gastroesophageal reflux disease without esophagitis (K21.9) Active confirmed Problem [id number] FDC (curre nt) use of oral hypoglycemic drugs (Z79.84) Active confirmed Vital Signs Temperature 97.1 degrees Fahrenheit 03/13/2024 Blood pressure diastolic 00 mm Hg 03/13/2024 Height 62.5 in 03/13/2024 Blood pressure systolic 000 mm Hg 03/13/2024 Weight 159 lb 2 oz lbs 03/13/2024 BMI 28.64 kg/m2 03/13/2024 Encounters Encounter Location Date Provider Diagnosis [facility] [address] [place] [id number] 04/23/2024 Joshua Mckeon Jr Colon cancer screening Z12.11 and Colon polyps K63.5 [facility] [address] [address] 03/13/2024 Joshua Mckeon Jr Special screening for malignant neoplasms, colon Z12.11 ; Gastroesophageal reflux disease without esophagitis K21.9 and FDC (current) use of oral hypoglycemic drugs Z79.84 [facility] [address] [address] 05/01/2024 Joshua Mckeon Jr Assessments Encounter Date Diagnosis (ICD Code) Assessment Notes Treatment Notes Treatment Clinical Notes Section Notes 04/23/2024 Colon cancer screening (ICD-10 - Z12.11) 04/23/2024 Colon polyps (ICD-10 - K63.5) 03/13/2024 Special screening for malignant neoplasms, colon (ICD-10 - Z12.11) We discussed gastroesophageal reflux disease today. Currently, she is doing well. She will continue diet and lifestyle modifications. Followup colonoscopy will be arranged. She understands risks and benefits and agrees to proceed. She is advised to stop metformin the day before her procedure. 03/13/2024 Gastroesophageal reflux disease without esophagitis (ICD-10 - K21.9) We discussed gastroesophageal reflux disease today. Currently, she is doing well. She will continue diet and lifestyle modifications. Followup colonoscopy will be arranged. She understands risks and benefits and agrees to proceed. She is advised to stop metformin the day before her procedure. 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 Currently, she is doing well. She will continue diet and lifestyle modifications. Followup colonoscopy will be arranged. She understands risks and benefits and agrees to proceed. She is advised to stop metformin the day before her procedure. Plan Of Treatment Future Test Test Name Order Date COLONOSCOPY 03/13/2024 Insurance Providers Payer Name Payer Address Payer Phone Subscriber Number Group Number Insured Name Patient Relationship to Insured Coverage Start Date Coverage End Date [employer] Medicare Adv (PPO) [address] [address] [place] [address] [id number] ELOINA JOVEL Self - patient is the insured Medical (General) History Medical History History ICD Code Hypertension Hyperlipidemia Impaired glucose patellas him Esophageal stricture with hi story of food impaction status post EGD with balloon dilation 05/24, reflux symptoms controlled with diet Colonoscopy 12/21, normal, ten-year follo wup Surgical History Surgery Date(Month/Year) partial hysterectomy breast biopsy-right trigger finger cyst on left wrist
== END 2025-01-17 08:02 | disposition home or self-care (01) ==
LOC: HO.MAMMO 08:01
PROVIDERS: PCP Internal Medicine; Visit Provider Internal Medicine
DX: Z12.31 Encounter for screening mammogram for malignant neoplasm of breast (principal)
CPT/HCPCS: 77063; 77067

== ENCOUNTER → 2025-01-17 08:15 | Outpatient (BNV) | payer MEDICARE, SELFPAY | PROVIDERS: PCP Internal Medicine; Visit Provider Internal Medicine | DX: Z12.31 Encounter for screening mammogram for malignant neoplasm of breast (principal) | CPT/HCPCS: 77063; 77067 ==

== ENCOUNTER 2025-01-30 08:52 | Outpatient (REF) | payer MEDICARE, SELFPAY ==
[2025-01-30 09:07] LABS: MANUAL DIFF FLAG NO
--- OUTSIDE RECORDS SUMMARY | 2025-01-30 09:21 | XMS_ITS | Patient Health Record ---
Author Organization [facility] Address [address] [place] [address] Care Team Providers Care Applications Engineer Manufacturing Name Role Phone AMBROCIO WELCH Primary Care Provider Joshua Renteria Jr Allergies No Known Allergies Results Component Value Reference Range Notes Glucose, Whole Blood Reviewed date:04/23/2024 02:37:04 PM Interpretation: Performing Lab:[facility], [address] [place] [phone] Notes/Report: Glucose, Whole Blood 106 60-115 mg/dL METER # : [id number] Pathology Reviewed date:05/01/2024 08:19:53 AM Interpretation: Performing Lab:[facility], [address] [place] [phone] Notes/Report: Reason For Referral No Information Medications [...] Problem Status W/U Status Risk Notes Problem 521369520 Special screenin g for malignant neoplasms, colon (Z12.11) Active confirmed Problem 243705191 Gastroesophageal reflux disease without esophagitis (K21.9) Active confirmed Problem [id number] residential (curre nt) use of oral hypoglycemic drugs (Z79.84) Active confirmed Vital Signs Temperature 97.1 degrees Fahrenheit 03/13/2024 Blood pressure diastolic 00 mm Hg 03/13/2024 Height 62.5 in 03/13/2024 Blood pressure systolic 000 mm Hg 03/13/2024 Weight 159 lb 2 oz lbs 03/13/2024 BMI 28.64 kg/m2 03/13/2024 Encounters Encounter Location Date Provider Diagnosis [facility] [address] [place] [id number] 04/23/2024 Joshua Mckeon Jr Colon cancer screening Z12.11 and Colon polyps K63.5 [facility] [address] [address] 03/13/2024 Joshua Mckeon Jr Special screening for malignant neoplasms, colon Z12.11 ; Gastroesophageal reflux disease without esophagitis K21.9 and residential (current) use of oral hypoglycemic drugs Z79.84 [facility] [address] [address] 05/01/2024 Joshua Mckeon Jr Assessments Encounter Date [...] metformin the day before her procedure. 03/13/2024 charity fundraiser (current) use of oral hypoglycemic drugs (ICD-10 [...] [employer] Medicare Adv (PPO) [address] [address] [place] [address] [id number] ELOINA JOVEL Self - patient is the [...]
[2025-01-30 09:43] LABS: Hematocrit 38.7 % (37.0-47.0); Hemoglobin 13.3 g/dl (12.0-16.0); Imm Gran Abs Auto 0.01 X10*3/uL (0.00-0.03); Imm Gran Pct Auto 0.2 % (0.0-0.4); Lymphocytes Absolute Auto 2.1 X10*3/uL (1.2-4.9); Mean Corpuscular HGB Conc 34.4 g/dl (31.0-35.0); Mean Corpuscular Hemoglobin 30.1 pg (27.0-33.0); Mean Corpuscular Volume 87.6 fL (80.0-98.0); NRBC Abs Auto 0.000 X10*3/uL (0.0-0.012); NRBC Pct Auto 0.0 /100WBC (0.0-0.2); Platelet Count 227 X10*3/uL (160-400); Red Blood Count 4.42 X10*6/uL (4.20-5.50); White Blood Count 6.1 X10*3/uL (4.8-10.8)
[2025-01-30 09:57] LABS: Appearance Urine Clear; Glucose Urine UA Negative (Negative); PH 5.5 (5.0-9.0); Specific Gravity - Urine 1.015 (1.005-1.025); UMIC TRIGGER UACC YES
[2025-01-30 09:57] LABS: Hemoglobin A1C 138.5348 umol/L; Total Hemoglobin (HGBA1C) 3432.0028 umol/L
[2025-01-30 10:21] LABS: Alanine Aminotransferase 24 U/L (0-31); Albumin Level 4.6 g/dL (3.5-5.0); Alkaline Phosphatase 74 U/L (39-117); Anion Gap 10 (12-20); Aspartate Amino Transferase 21 U/L (5-31); Blood Urea Nitrogen 16 mg/dL (9-16); Calcium 9.8 mg/dL (8.4-10.2); Carbon Dioxide 30 mmol/L (22-29); Chloride 104 mmol/L (96-108); Cholesterol 161 mg/dL (<200); Estimated Glomerular Filt Rate 60; HDL Cholesterol 53 mg/dL (>40); Magnesium 2.1 mg/dL (1.6-2.6); Potassium 3.8 mmol/L (3.3-5.1); Sodium 140 mmol/L (135-145); Total Protein 7.6 g/dL (6.5-8.0); Triglycerides 98 mg/dL (<150)
[2025-01-30 10:44] LABS: Folate 16.1 ng/mL (> or = 4.0); Vitamin B12 1362 pg/mL (200-900)
== END 2025-01-30 08:53 | disposition home or self-care (01) ==
LOC: HO.LAB 08:52
PROVIDERS: PCP Internal Medicine; Visit Provider Physician Assistant Medical
DX: Z00.00 Encounter for general adult medical examination without abnormal findings (principal); E11.9 Type 2 diabetes mellitus without complications; R30.0 Dysuria
CPT/HCPCS: 36415; 80053; 80061; 80076; 81001; 82043; 82248; 82306; 82550; 82570; 82607; 82746; 83036; 83735; 84425; 84443; 85025

== ENCOUNTER 2025-02-06 08:36 | Outpatient (AMB) | payer MEDICARE, SELFPAY ==
--- NOTE | 2025-02-06 08:41 | MHC.PC.OV ---
Vital Signs 02/06/25 08:42 Height 5 ft 3 in Weight 157 lb BMI 27.8 BP 120/72 Blood Pressure Location Lt brachial Position Sitting Pulse 70 Pulse Source Pulse Oximeter Temp 97.1 F Temp Source Temporal Artery Scan Pulse Oximetry (%) 97 Oxygen Delivery Method Room Air Intake Visit Reasons: Annual Exam - see comments Intake Note: Patient is here today for a physical. Principal Accounts Clerk Required: No Project Builder: Present Accompanied by: Spouse Allergies No Known Allergies (No Known Allergies*) Allergy (Verified 02/14/25 08:13) Medication List - Last Reconciled 02/14/25 by Alexander Baldwin MD dorzolamide-timolol 22.3-6.8 mg/mL (Cosopt) 1 drp ophthalmic (eye) BID latanoprost 0.005% 1 drp ophthalmic (eye) BEDTIME lisinopril-hydrochlorothiazide 10-12.5 mg 1 tab PO DAILY 90 days metformin 500 mg PO DAILY 90 days rosuvastatin 10 mg PO DAILY Tobacco use date assessed: 02/06/25 Fall risk assessment: No Falls in past year Last assessed Fall Risk: 02/06/25 Dental Screening Dental Screen Date: 08/23/24 [facility] Medical History (Updated 08/23/24 @ 11:48 by Shelley Pederson PA-C) Yeast infection Prediabetes White coat syndrome with hypertension Glaucoma Epidermal cyst Normal colonoscopy Hyperlipidemia Hypertension Impaired glucose metabolism Surgical History (Updated 02/06/25 @ 08:48 by NEIL Mccormick) History of YAG laser capsulotomy of lens History of esophagogastroduodenoscopy (EGD) Hx of hand surgery H/O colonoscopy (~04/23/24) Hx of excision of mass History of right breast biopsy History of partial hysterectomy Family History Father MVA (motor vehicle accident) Mother Cancer Sister Diabetes Hypertension Sister No problems noted. Social History Housing: House Alcohol intake: never Patient Tobacco Use Status: Never used Tobacco e-Cigarette/Vaping Use: Never Used Second Hand Smoke Exposure: No service: No Current occupational status: employed Current occupational exposures/hazards: No Cognitive needs: No Hearing needs: No Vision needs: Yes Questionnaire PHQ-9 Over the last 2 weeks, how often have you been bothered by any of the following problems? 1. Little interest or pleasure in doing things: not at all 2. Feeling down, depressed, or hopeless: not at all 3. Trouble falling or staying asleep, or sleeping too much: not at all 4. Feeling tired or having little energy: not at all 5. Poor appetite or overeating: not at all 6. Feeling bad about yourself - or that you are a failure or have let yourself or your family down: not at all 7. Trouble concentrating on things, such as reading the newspaper or watching television: not at all 8. Moving or speaking so slowly that other people could have noticed. Or the opposite - being so fidgety or restless that you have been moving around a lot more than usual: not at all 9. Thoughts that you would be better off or of hurting yourself in some way: not at all Total score: 0 Depression Screening Interpretation: Negative Depression Screening Done: Yes Source: Developed by Drs. Akshat Aguilar, Venecia Solomon, Simeon Saleh and colleagues, with an educational veronica from [employer]. Thrive Questionnaire Date Thrive assessed: 08/23/24 I am a: Patient What is your living situation today?: I have a steady place to live Within the past 12 months, did the food you bought not last and you didn't have the money to get more?: Never true Within the past 12 months, did you worry whether your food would run out before you got money to buy more?: Never true Do you have trouble paying for medicines?: No Do you have trouble getting transportation to medical appointments?: No Do you have trouble paying your heating and electricity bill?: No Do you have trouble taking care of your child, family member or friend?: No Do you have trouble with day-to-day activities such as bathing, preparing meals, shopping, managing finances, etc.?: No Are you currently unemployed and looking for a job?: No Are you interested in more education?: No Please select the resources that you would like help with: None Currently or been in a relationship where the following occur: No concerns reported THRIVE Score: 0 AUDIT C Alcohol Use Questionnaire (AUDIT-C) 1. How often do you have a drink containing alcohol?: Never Total Score: 0 MICHAEL-7 AMB Questionnaire MICHAEL-7 Date MICHAEL - 7 assessed: 08/23/24 Feeling nervous, anxious, or on edge: 0 = Not at all Not being able to stop or control worryin = Not at all Worrying too much about different things: 0 = Not at all Trouble relaxin = Not at all Being so restless that it is hard to sit still: 0 = Not at all Becoming easily annoyed or irritable: 0 = Not at all Feeling afraid as if something awful might happen: 0 = Not at all Total MICHAEL-7 score (0-4 normal; 5-9 mild; 10-14 moderate; 15-21 severe): 0 Source: Developed by Drs. Akshat Aguilar, Venecia Solomon, Simeon Saleh and colleagues, with an educational veronica from [employer]. Physical exam (Primary Care) Vital Signs: Last Vital Signs Temp 97.1 F 02/06/25 08:42 Pulse 70 02/06/25 08:42 BP 120/72 02/06/25 08:42 Pulse Ox 97 02/06/25 08:42 Oxygen Delivery Method Room Air 02/06/25 08:42 BMI result Body Mass Index 27.8 Tobacco/Smoking Status: Tobacco use Status Tobacco use date assessed 02/06/25 02/06/25 08:50 Patient Tobacco Use Status Never used Tobacco 02/06/25 08:50 e-Cigarette/Vaping Use Never Used 02/06/25 08:50 PHQ-9: PHQ-9 Score PHQ-9: Total score 0 02/06/25 08:50 Depression Screening Interpretation: Negative Thrive Assessment: Date of Thrive Assessment Date Thrive assessed 08/23/24 02/06/25 08:50 Currently or been in a relationship where the following occur: No concerns reported Coding Level of Care Code New Pt Prev Care >65yr (53023) Diagnoses Annual physical exam Z00.00 Assessment & Plan Assessment & Plan (1) Annual physical exam: Code(s): Z00.00 - Encounter for general adult medical examination without abnormal findings Category: Medical Plan: History of Present Illness - The patient is a 74-year-old female presenting with a wellness visit. - Reports elevated Vitamin B12 levels from a recent test. - Underwent glaucoma surgery on both eyes, one in December and the other in January. - Scheduled for cataract surgery in March due to blurry vision and discomfort with lights. - Preventative care includes a mammogram in December and a colon cancer screening with Danielle, which she is no longer required to repeat due to age. 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 - Family: Has a daughter involved in the business and grandchildren who work during the summer. Review of Systems - General: Denies any pain or significant health concerns. - Ophthalmologic: Reports blurry vision and discomfort with lights, denies halos around lights. Physical Exam General: Cooperative and healthy appearing Nutritional Appearance: Well nourished Orientation/consciousness: Patient oriented x3 Limitations: No limitations Head: Normal to inspection General: Appearance normal, both eyes and all related structures Neck: Normal visual inspection Chest: Normal palpation of entire chest wall Respiratory: N ormal respiratory effort Neurology: Patient oriented x3, no pain reported Results - Labs: Elevated Vitamin B12 levels noted in recent test. Plan 1. Elevated Vitamin B12 Levels - Advised to stop taking vitamins containing B12 for a week and then resume every other day. 2. Glaucoma - Underwent surgery in December and January, follow-up with geotechnical laboratory technician scheduled. 3. Cataracts - Scheduled for cataract surgery in March. Discussion Notes During the visit, we discussed the elevated Vitamin B12 levels and the plan to adjust vitamin intake. We also reviewed the patient's recent glaucoma surgeries and the upcoming cataract surgery. Preventative care measures, including mammogram and colon cancer screening, were confirmed as up to date. Patient Instructions - Stop taking vitamins containing B12 for one week, then resume every other day. - Follow up with geotechnical laboratory technician for cataract surgery in March. - Continue with regular preventative care screenings as advised.
[2025-02-06 08:42] VITALS: BP 120/72; PULSE 70; TEMP 36.2; O2SAT 97; BMI 27.8
--- OUTSIDE RECORDS SUMMARY | 2025-02-06 08:46 | XMS_ITS | Patient Health Record ---
Author Organization [facility] Address [address] [place] [address] Care Team Providers Care Human Resources Compensation Analyst Name Role Phone AMBROCIO WELCH Primary Care Provider Joshua Renteria Jr Allergies No Known Allergies Results Component Value Reference Range Notes Glucose, Whole Blood Reviewed date:04/23/2024 02:37:04 PM Interpretation: Performing Lab:[facility], [address] [place] [phone] Notes/Report: Glucose, Whole Blood 106 60-115 mg/dL METER # : [id number] Pathology Reviewed date:05/01/2024 08:19:53 AM Interpretation: Performing Lab:[facility], [address] [place] [phone] Notes/Report: Reason For Referral No Information Medications [...] Problem Status W/U Status Risk Notes Problem 391130701 Special screenin g for malignant neoplasms, colon (Z12.11) Active confirmed Problem 179106197 Gastroesophageal reflux disease without esophagitis (K21.9) Active confirmed Problem 888156316372564 halfway (curre nt) use of oral hypoglycemic drugs (Z79.84) Active confirmed Vital Signs Temperature 97.1 degrees Fahrenheit 03/13/2024 Blood pressure diastolic 00 mm Hg 03/13/2024 Height 62.5 in 03/13/2024 Blood pressure systolic 000 mm Hg 03/13/2024 Weight 159 lb 2 oz lbs 03/13/2024 BMI 28.64 kg/m2 03/13/2024 Encounters Encounter Location Date Provider Diagnosis [facility] [address] [place] [id number] 04/23/2024 Joshua Mckeon Jr Colon cancer screening Z12.11 and Colon polyps K63.5 [facility] [address] [address] 03/13/2024 Joshua Mckeon Jr Special screening for malignant neoplasms, colon Z12.11 ; Gastroesophageal reflux disease without esophagitis K21.9 and halfway (current) use of oral hypoglycemic drugs Z79.84 [facility] [address] [address] 05/01/2024 Joshua Mckeon Jr Assessments Encounter Date [...] [employer] Medicare Adv (PPO) [address] [address] [place] [address] [id number] ELOINA JOVEL Self - patient is the [...]
== END 2025-02-06 09:26 | disposition home or self-care (01) ==
LOC: HO.HMCH 08:37
PROVIDERS: PCP Internal Medicine; Visit Provider Internal Medicine
DX: Z00.00 Encounter for general adult medical examination without abnormal findings (principal)

== ENCOUNTER → 2025-02-06 08:36 | Outpatient (BNVA) | payer MEDICARE, SELFPAY | PROVIDERS: PCP Internal Medicine; Visit Provider Internal Medicine | DX: Z00.00 Encounter for general adult medical examination without abnormal findings (principal); I10 Essential (primary) hypertension; E78.5 Hyperlipidemia, unspecified | CPT/HCPCS: 99387 ==